=== PATIENT | female | born 1945 | race Caucasian/White ===

== ENCOUNTER 2018-04-01 13:35 | Emergency (ER) | payer MEDICARE, BC, OTHER, SELFPAY ==
--- NOTE | 2018-04-01 13:44 | ED_ITS ---
HPI - Abdominal Pain <TITO Nam - Last Filed: 04/01/18 22:06> General Chief Complaint: Abdominal Pain Stated Complaint: COLON PAIN Time Seen by Provider: 04/01/18 13:36 History of Present Illness HPI narrative: 72-year-old female with history of diverticulitis here for complaint of lower abdominal pain over the past 4 days. She states she has had chills although unknown fever. Last bowel movement was yesterday and was slightly firm. Positive p.o. intake although she did have some nausea over the past couple of days. She has history of diverticulitis with a partial colectomy in August of last year in which they also performed a hysterectomy and oophorectomy. She denies any trauma to the abdomen. Patient also has a history of appendectomy. She denies any stressors of the pain. Although she states laying down and going to sleep does help with the pain. She denies any urinary symptoms. No flank pain. MD complaint: abdominal pain Related Data Home Medications Medication Instructions Recorded Confirmed aspirin 81 mg PO DAILY 04/01/18 04/01/18 omeprazole 20 mg PO QDAYP PRN 04/01/18 04/01/18 Previous Rx's Medication Instructions Recorded ciprofloxacin HCl 500 mg PO BID #14 tab 04/01/18 hydrocodone-acetaminophen [[place]] 1 tab PO Q6H PRN #10 tab 04/01/18 metronidazole 500 mg PO TID #21 tab 04/01/18 ondansetron 8 mg PO Q8HR PRN #10 tab 04/01/18 Allergies Allergy/AdvReac Type Severity Reaction Status Date / Time Penicillins [PENICILLINS] Allergy Unknown RASH Verified 04/01/18 14:18 Review of Systems <TITO Nam - Last Filed: 04/01/18 22:06> Constitutional Denies chills, Denies fever(s), Denies lethargy and Denies weakness Eyes Denies change in vision, Denies eye discharge, Denies irritation and Denies loss of vision ENT Ears, Nose, Mouth, and Throat: Denies change in voice, Denies neck pain and Denies sore throat Cardiovascular Denies chest pain, Denies irregular heart rhythm, Denies lightheadedness, Denies palpitations, Denies dyspnea, Denies dyspnea on exertion and Denies orthopnea Respiratory Denies cough, Denies dyspnea, Denies dyspnea on exertion and Denies wheezing Gastrointestinal Gastrointestinal: Reports abdominal pain Genitourinary Denies hematuria, Denies flank pain, Denies urinary incontinence and Denies urinary urgency Musculoskeletal Denies neck pain Integumentary/Breasts Denies pruritus, Denies erythema, Denies rash and Denies wounds Neurologic Denies confusion, Denies loss of vision and Denies weakness Psychiatric Denies anxiety, Denies confusion, Denies depression, Denies homicidal ideation and Denies suicidal ideation Endocrine Denies palpitations Hematologic/Lymphatic Denies easy bruising Allergic/Immunologic Denies wheezing Exam <TITO Nam - Last Filed: 04/01/18 22:06> Initial Vital Signs Initial Vital Signs: Vital Signs Temperature 99.1 F 04/01/18 13:55 Pulse Rate 89 04/01/18 13:55 Respiratory Rate 16 04/01/18 13:55 Blood Pressure 133/84 H 04/01/18 13:55 Pulse Oximetry 97 04/01/18 13:55 Const General: cooperative and well developed Nutritional Appearance: well nourished Orientation: alert, awake, oriented x3 and not confused HENWV Mouth: oral mucosae normal and moist mucous membranes Chest Chest: normal inspection of the chest Resp Effort & Inspection: normal respiratory effort, able to speak in complete sentences, no respiratory distress and no use of accessory muscles Auscultation: clear to auscultation bilaterally, no rales, no rhonchi and no wheezes Cardio Rate: regular rate Rhythm: regular rhythm Heart Sounds: no click, no gallops, no murmurs and no rubs GI Inspection: non-distended Palpation: soft, no hepatosplenomegaly, No guarding, No pulsatile mass and tender (Tender to bilateral lower quadrant. ) Auscultation: normal bowel sounds Skin General: no rashes or lesions noted, No jaundice and No petechiae Neuro General: alert, oriented x3, gait normal and no focal motor deficits Speech: speech normal <Magy Huerta DO - Last Filed: 04/02/18 07:39> Initial Vital Signs Initial Vital Signs: Vital Signs Temperature 99.1 F 04/01/18 13:55 Pulse Rate 89 04/01/18 13:55 Respiratory Rate 16 04/01/18 13:55 Blood Pressure 133/84 H 04/01/18 13:55 Pulse Oximetry 97 07/07/18 13:55 Course <TITO Nam - Last Filed: 04/01/18 22:06> Orders Ordered: Discontinued Medications Sodium Chloride (Normal Saline 0.9%) 1,000 mls @ 150 mls/hr IV CONT RONN Last Infusion: 04/01/18 16:28 Dose: 150 mls/hr Admin: 04/01/18 14:19 Dose: 150 mls/hr Morphine Sulfate (Morphine) 2 mg IV NOW ONE Stop: 04/01/18 14:32 Last Admin: 04/01/18 14:35 Dose: 2 mg Ondansetron HCl (Zofran) 4 mg IV NOW ONE Stop: 04/01/18 14:32 Last Admin: 04/01/18 14:35 Dose: 4 mg Vital Signs - 8 hr 04/01/18 15:07 04/01/18 16:25 Temperature 98.7 F 97.4 F L Pulse Rate 83 78 Respiratory Rate 18 18 Blood Pressure [Right Arm] 118/65 108/67 Pulse Oximetry 95 97 <Magy Huerta DO - Last Filed: 04/02/18 07:39> Orders Ordered: Discontinued Medications Sodium Chloride (Normal Saline 0.9%) 1,000 mls @ 150 mls/hr IV CONT RONN Last Infusion: 04/01/18 16:28 Dose: 150 mls/hr Admin: 04/01/18 14:19 Dose: 150 mls/hr Morphine Sulfate (Morphine) 2 mg IV NOW ONE Stop: 04/01/18 14:32 Last Admin: 04/01/18 14:35 Dose: 2 mg Ondansetron HCl (Zofran) 4 mg IV NOW ONE Stop: 04/01/18 14:32 Last Admin: 04/01/18 14:35 Dose: 4 mg Vital Signs - 8 hr 04/01/18 15:07 04/01/18 16:25 Temperature 98.7 F 97.4 F L Pulse Rate 83 78 Respiratory Rate 18 18 Blood Pressure [Right Arm] 118/65 108/67 Pulse Oximetry 95 97 MDM - Abdominal Pain <TITO Nam - Last Filed: 04/01/18 22:06> Lab Data Result diagrams: 04/01/18 14:05 04/01/18 14:05 Lab Results 04/01/18 04/01/18 Range/Units 14:05 14:05 WBC 7.9 (4.5-11.0) X10^3/uL RBC 4.74 (4.0-5.2) X10^6/uL Hgb 14.7 (12.0-16.0) g/dL Hct 42.3 (36-46) % MCV 89.2 (80-100) fL MCH 30.9 (26-34) PG MCHC 34.7 (30-36) % RDW 13.9 (11.6-14.8) % Plt Count 222 (150-400) X10^3/uL Neut % (Auto) 63.4 (50-75) % Lymph % (Auto) 25.3 (25-40) % [place] % (Auto) 9.7 (3-14) % Eos % (Auto) 0.9 L (2-4) % Baso % (Auto) 0.7 (0-2) % Neut # (Auto) 5000 (4668-4789) /uL Sodium 140 (137-145) mmol/L Potassium 4.2 (3.4-5.1) mmol/L Chloride 102 (98-107) mmol/L Carbon Dioxide 27 (22-32) mmol/L BUN 13 (7-17) mg/dL Creatinine 0.80 (0.52-1.04) mg/dL Estimated GFR > 60.0 (>60) mL/min BUN/Creatinine Ratio 16.3 (6-22) Glucose 96 (80-110) mg/dL Calcium 9.6 (8.4-10.2) mg/dL Total Bilirubin 0.7 (0.2-1.3) mg/dL AST 29 (14-36) IU/L ALT 31 (9-52) IU/L Alkaline Phosphatase 87 (38-126) U/L Total Protein 7.6 (6.3-8.2) g/dL Albumin 4.3 (3.5-5.0) g/dL Globulin 3.3 (1.7-4.1) g/dL Albumin/Globulin Ratio 1.3 (1.0-2.8) Lipase 99 (23-300) U/L Point of care testing: Urine Dip Bedside Urine Glucose Negative Bedside Urine Bilirubin - Negative Bedside Urine Ketone - Negative Urine Specific Secretary 1.010 Bedside Urine Occult Blood - Negative Bedside Urine pH 6.0 Bedside Urine Protein - Negative Bedside Urine Urobilinogen - Negative Bedside Urine Nitrite - Negative Bedside Urine Leukocytes - Negative Esterase Imaging Data CT scan - abdomen: Radiologist's impression: FINDINGS: Image quality: Excellent. ABDOMEN: Lung bases: There is mild dependent atelectasis. Heart size is normal. A small hiatal hernia is present. Solid organs: There is hypoattenuation of the liver consistent with fatty infiltration. Gallbladder appears within normal limits without calcified gallstones. Biliary system is non-dilated. Pancreas enhances normally. Spleen is normal in size and enhancement. No adrenal nodules. Kidneys are normal in size and enhancement, without hydronephrosis. Peritoneum and bowel: Stomach and small bowel loops are normal in caliber and wall thickness. There are 4 duodenal diverticula redemonstrated along the 2nd through 4th portions of the duodenum without associated inflammatory changes. There are postsurgical changes status post partial colectomy in the sigmoid colon with an end to side anastomosis. Colonic diverticulosis is present with associated inflammatory fat stranding and wall thickening consistent with acute diverticulitis within the blind ending segment of the sigmoid colon adjacent to the anastomotic site. There is a small amount of associated free fluid. No diverticular abscess or macroscopic free air. Nodes and vessels: No retroperitoneal or mesenteric adenopathy. Aorta and inferior vena cava are normal in caliber. Miscellaneous: No ventral hernias. PELVIS: Genitourinary: Bladder wall thickness is normal. The uterus is surgically absent. Miscellaneous: No inguinal hernias or adenopathy. Bones: No suspicious bony lesions. No vertebral body compression fractures. IMPRESSION: 1. Diverticulitis of the sigmoid colon involving the blind ending loop adjacent to the patient's end to side anastomosis. No diverticular abscess or macroscopic free air. No associated bowel obstruction. 2. Small hiatal hernia. 3. Hepatic steatosis. Dictated by: Hector Campos M.D. on 04/01/2018 at 15:21 Approved by: Hector Campos M.D. on 04/01/2018 at 15:31 MDM Narrative Medical decision making narrative: CBC Chem panel were obtained were unremarkable. Lipase was also unremarkable. CT of the abdomen was obtained and shows diverticulitis with no abscess or signs of free air to the abdomen to the sigmoid colon. She is placed on ciprofloxacin and Flagyl. Small amount of [place] is prescribed for breakthrough pain. Zofran ODT is also prescribed for nausea. Follow up with primary care provider in the next couple days for re- evaluation. Slowly advance diet as tolerated. For any worsening symptoms return to the emergency room. <Magy Huerta, DO - Last Filed: 04/02/18 07:39> Lab Data Lab Results 04/01/18 04/01/18 Range/Units 14:05 14:05 WBC 7.9 (4.5-11.0) X10^3/uL RBC 4.74 (4.0-5.2) X10^6/uL Hgb 14.7 (12.0-16.0) g/dL Hct 42.3 (36-46) % MCV 89.2 (80-100) fL MCH 30.9 (26-34) PG MCHC 34.7 (30-36) % RDW 13.9 (11.6-14.8) % Plt Count 222 (150-400) X10^3/uL Neut % (Auto) 63.4 (50-75) % Lymph % (Auto) 25.3 (25-40) % [place] % (Auto) 9.7 (3-14) % Eos % (Auto) 0.9 L (2-4) % Baso % (Auto) 0.7 (0-2) % Neut # (Auto) 5000 (6506-4369) /uL Sodium 140 (137-145) mmol/L Potassium 4.2 (3.4-5.1) mmol/L Chloride 102 (98-107) mmol/L Carbon Dioxide 27 (22-32) mmol/L BUN 13 (7-17) mg/dL Creatinine 0.80 (0.52-1.04) mg/dL Estimated GFR > 60.0 (>60) mL/min BUN/Creatinine Ratio 16.3 (6-22) Glucose 96 (80-110) mg/dL Calcium 9.6 (8.4-10.2) mg/dL Total Bilirubin 0.7 (0.2-1.3) mg/dL AST 29 (14-36) IU/L ALT 31 (9-52) IU/L Alkaline Phosphatase 87 (38-126) U/L Total Protein 7.6 (6.3-8.2) g/dL Albumin 4.3 (3.5-5.0) g/dL Globulin 3.3 (1.7-4.1) g/dL Albumin/Globulin Ratio 1.3 (1.0-2.8) Lipase 99 (23-300) U/L Point of care testing: Urine Dip Bedside Urine Glucose Negative Bedside Urine Bilirubin - Negative Bedside Urine Ketone - Negative Urine Specific Secretary 1.010 Bedside Urine Occult Blood - Negative Bedside Urine pH 6.0 Bedside Urine Protein - Negative Bedside Urine Urobilinogen - Negative Bedside Urine Nitrite - Negative Bedside Urine Leukocytes - Negative Esterase Discharge Plan Departure Patient Disposition: Home, Self-Care Clinical Impression: Acute diverticulitis Discharge Date/Time: 04/01/18 16:29 Interventions: ED Discharge Assessment Last Done: 04/01/18 16:29 Instructions: Diverticulitis Activity Restrictions/Additional Instructions: Laboratory results today were unremarkable. CT of the abdomen shows diverticulitis to the sigmoid colon. You were placed on antibiotics ciprofloxacin and Flagyl use as directed. [id number] Tylenol as needed for any discomfort. Small amount of [place] is prescribed for breakthrough pain use as directed no driving while on the [place]. Zofran is prescribed for nausea use as directed. Follow up with her primary care provider in the next couple days for re-evaluation. For any worsening symptoms return to the emergency room. Slowly advance diet as tolerated. Prescriptions: New hydrocodone-acetaminophen [[place]] 5-325 mg tablet 1 tab PO Q6H PRN (Reason: pain) Qty: 10 RF: 0 metronidazole 500 mg tablet 500 mg PO TID Qty: 21 RF: 0 ciprofloxacin HCl 500 mg tablet 500 mg PO BID Qty: 14 RF: 0 ondansetron 4 mg tablet,disintegrating 8 mg PO Q8HR PRN (Reason: nausea and vomiting) Qty: 10 RF: 0 No Action aspirin 81 mg Tablet,Chewable 81 mg PO DAILY RF: 0 omeprazole 20 MG tablet,delayed release (DR/EC) 20 mg PO QDAYP PRN (Reason: reflux) RF: 0 Referrals: Beatriz Kunz MD [Primary Care Provider] - <Magy Huerta DO - Last Filed: 04/02/18 07:39> Cosign ED Attending Cosignature Attestation: I was immediately available in the department for consultation. Documentation has been reviewed. I agree with assessment and plan.
[2018-04-01 13:55] VITALS: BP 133/84; PULSE 89; RESP 16; TEMP 37.3; O2SAT 97; BMI 29.2
--- NOTE | 2018-04-01 13:59 | DI.CT.S_ITS ---
PROCEDURE: CT ABDOMEN PELVIS W CON INDICATIONS: Bilateral lower abdominal pain TECHNIQUE: After the administration of oral and intravenous contrast, 5 mm thick sections acquired from the diaphragms to the symphysis. 5 mm thick coronal and sagittal reformats were performed. For radiation dose reduction, the following was used: automated exposure control, adjustment of mA and/or kV according to patient size. COMPARISON: [facility], CT, ABDOMEN/PELVIS WITH CONTRAST, 05/28/2016, 22:56. FINDINGS: Image quality: Excellent. ABDOMEN: Lung bases: There is mild dependent atelectasis. Heart size is normal. A small hiatal hernia is present. Solid organs: There is hypoattenuation of the liver consistent with fatty infiltration. Gallbladder appears within normal limits without calcified gallstones. Biliary system is non-dilated. Pancreas enhances normally. Spleen is normal in size and enhancement. No adrenal nodules. Kidneys are normal in size and enhancement, without hydronephrosis. Peritoneum and bowel: Stomach and small bowel loops are normal in caliber and wall thickness. There are 4 duodenal diverticula redemonstrated along the 2nd through 4th portions of the duodenum without associated inflammatory changes. There are postsurgical changes status post partial colectomy in the sigmoid colon with an end to side anastomosis. Colonic diverticulosis is present with associated inflammatory fat stranding and wall thickening consistent with acute diverticulitis within the blind ending segment of the sigmoid colon adjacent to the anastomotic site. There is a small amount of associated free fluid. No diverticular abscess or macroscopic free air. Nodes and vessels: No retroperitoneal or mesenteric adenopathy. Aorta and inferior vena cava are normal in caliber. Miscellaneous: No ventral hernias. PELVIS: Genitourinary: Bladder wall thickness is normal. The uterus is surgically absent. Miscellaneous: No inguinal hernias or adenopathy. Bones: No suspicious bony lesions. No vertebral body compression fractures. IMPRESSION: 1. Diverticulitis of the sigmoid colon involving the blind ending loop adjacent to the patient's end to side anastomosis. No diverticular abscess or macroscopic free air. No associated bowel obstruction. 2. Small hiatal hernia. 3. Hepatic steatosis. Dictated by: Hector Campos M.D. on 04/01/2018 at 15:21 Approved by: Hector Campos M.D. on 04/01/2018 at 15:31
[2018-04-01 14:14] LABS: Add Manual Diff / Slide Review NO; Basophils Percent Auto 0.7 % (0-2); Eosinophils Percent Auto 0.9 % (2-4); Hematocrit 42.3 % (36-46); Hemoglobin 14.7 g/dL (12.0-16.0); Lymphocytes Percent Auto 25.3 % (25-40); Mean Corpuscular HGB Conc 34.7 % (30-36); Mean Corpuscular Hemoglobin 30.9 PG (26-34); Mean Corpuscular Volume 89.2 fL (80-100); Monocytes Percent Auto 9.7 % (3-14); Neutrophils Absolute Auto 5000 /uL (3000-5900); Neutrophils Percent Auto 63.4 % (50-75); Platelet Count 222 X10^3/uL (150-400); Red Blood Cell Count 4.74 X10^6/uL (4.0-5.2); Red Cell Distribution Width 13.9 % (11.6-14.8); White Blood Cell Count 7.9 X10^3/uL (4.5-11.0)
[2018-04-01] MEDS: SODIUM CHLORIDE 0.9% 1,000 ML 150 ML IV (14:19)
[2018-04-01 14:26] LABS: Alanine Aminotransferase 31 IU/L (9-52); Albumin 4.3 g/dL (3.5-5.0); Albumin Globulin Ratio 1.3 (1.0-2.8); Alkaline Phosphatase 87 U/L (38-126); Aspartate Aminotransferase 29 IU/L (14-36); BUN Creatinine Ratio 16.3 (6-22); Bilirubin Total 0.7 mg/dL (0.2-1.3); Blood Urea Nitrogen 13 mg/dL (7-17); Calcium 9.6 mg/dL (8.4-10.2); Carbon Dioxide 27 mmol/L (22-32); Chloride 102 mmol/L (98-107); Estimated Glomerular Filt Rate > 60.0 mL/min (>60); Globulin 3.3 g/dL (1.7-4.1); Glucose 96 mg/dL (80-110); HEMOLYSIS 30 (0-50); Lipase 99 U/L (23-300); Potassium 4.2 mmol/L (3.4-5.1); Sodium 140 mmol/L (137-145); Total Protein 7.6 g/dL (6.3-8.2)
[2018-04-01] MEDS: MORPHINE 2 MG/ML INJ IV (14:35)
[2018-04-01] MEDS: ONDANSETRON 4 MG/2 ML INJ IV (14:35)
[2018-04-01 15:07] VITALS: BP 118/65; PULSE 83; RESP 18; TEMP 37.1; O2SAT 95
[2018-04-01 16:25] VITALS: BP 108/67; PULSE 78; RESP 18; TEMP 36.3; O2SAT 97
== END 2018-04-01 16:29 | disposition home or self-care (01) ==
PROVIDERS: Emergency Provider Nurse Practitioner Family; Family Provider Family Medicine; PCP Family Medicine
DX: K57.92 Diverticulitis of intestine, part unspecified, without perforation or abscess without bleeding (principal)
CPT/HCPCS: 36591; 74177; 80053; 81003; 83690; 85025; 96361; 96374; 96375; 99283; 99285; J2270; J2405; Q9967

== ENCOUNTER → 2018-06-05 09:32 | Outpatient (CLI) | payer MEDICARE, BC, OTHER, SELFPAY ==
[2018-06-05 10:17] LABS: Add Manual Diff / Slide Review NO; Basophils Percent Auto 2.8 % (0-2); Hematocrit 44.1 % (36-46); Hemoglobin 15.3 g/dL (12.0-16.0); Lymphocytes Percent Auto 33.4 % (25-40); Mean Corpuscular HGB Conc 34.6 % (30-36); Mean Corpuscular Hemoglobin 30.7 PG (26-34); Mean Corpuscular Volume 88.6 fL (80-100); Monocytes Percent Auto 9.5 % (3-14); Neutrophils Absolute Auto 2800 /uL (3000-5900); Neutrophils Percent Auto 52.3 % (50-75); Platelet Count 230 X10^3/uL (150-400); Red Blood Cell Count 4.97 X10^6/uL (4.0-5.2); Red Cell Distribution Width 14.2 % (11.6-14.8); White Blood Cell Count 5.3 X10^3/uL (4.5-11.0)
[2018-06-05 10:27] LABS: Alanine Aminotransferase 27 IU/L (9-52); Albumin 4.5 g/dL (3.5-5.0); Albumin Globulin Ratio 1.5 (1.0-2.8); Alkaline Phosphatase 62 U/L (38-126); Aspartate Aminotransferase 27 IU/L (14-36); BUN Creatinine Ratio 17.8 (6-22); Bilirubin Total 0.6 mg/dL (0.2-1.3); Blood Urea Nitrogen 16 mg/dL (7-17); Calcium 9.6 mg/dL (8.4-10.2); Carbon Dioxide 32 mmol/L (22-32); Chloride 105 mmol/L (98-107); Estimated Glomerular Filt Rate > 60.0 mL/min (>60); Glucose 106 mg/dL (80-110); HDL Cholesterol 46 mg/dL (40-60); HEMOLYSIS < 15 (0-50); Potassium 4.4 mmol/L (3.4-5.1); Sodium 145 mmol/L (137-145); Total Protein 7.5 g/dL (6.3-8.2); Triglycerides 453 mg/dL (35-150)
[2018-06-05 10:34] LABS: Cholesterol 338 mg/dL (140-199)
== END ==
PROVIDERS: Visit Provider Family Medicine
DX: E78.2 Mixed hyperlipidemia (principal); Z00.00 Encounter for general adult medical examination without abnormal findings; Z78.0 Asymptomatic menopausal state
CPT/HCPCS: 36415; 80053; 80061; 85025

== ENCOUNTER → 2018-06-21 14:24 | Outpatient (CLI) | payer MEDICARE, BC, OTHER, SELFPAY | PROVIDERS: Visit Provider Family Medicine | DX: M85.852 Other specified disorders of bone density and structure, left thigh (principal); Z78.0 Asymptomatic menopausal state; Z82.62 Family history of osteoporosis | CPT/HCPCS: 77080 ==

== ENCOUNTER → 2018-06-26 14:53 | Outpatient (CLI) | payer MEDICARE, BC, OTHER, SELFPAY ==
--- NOTE | 2018-06-26 14:55 | DI.US.S_ITS ---
PROCEDURE: US PERIPH VENOUS LOW EXTREM LT INDICATIONS: R/O DVT TECHNIQUE: Real-time imaging, as well as color and pulse Doppler interrogation, were performed of the lower extremity deep veins from the inguinal ligament to the popliteal fossa. COMPARISON: None. FINDINGS: The deep veins are normally compressible, and free of intraluminal thrombus. Color and pulse Doppler demonstrate normal phasic intraluminal flow. There is normal augmentation response to distal compression maneuver. IMPRESSION: No evidence of left lower extremity deep vein thrombosis. Dictated by: Yfn Mckinnon M.D. on 06/26/2018 at 14:19 Approved by: Yfn Mckinnon M.D. on 06/26/2018 at 14:19
== END ==
PROVIDERS: PCP Family Medicine; Visit Provider Family Medicine
DX: M79.89 Other specified soft tissue disorders (principal); L81.9 Disorder of pigmentation, unspecified; Z86.72 Personal history of thrombophlebitis
CPT/HCPCS: 93971

== ENCOUNTER → 2018-11-13 13:59 | Outpatient (CLI) | payer MEDICARE, BC, OTHER, SELFPAY ==
--- NOTE | 2018-11-13 | DI.MG.S_ITS ---
BILATERAL DIGITAL SCREENING MAMMOGRAM 3D/2D WITH CAD: 11/13/2018 CLINICAL: Routine screening. Comparison is made to exams dated: 07/16/2016 mammogram, 04/17/2014 mammogram, and 09/10/2011 mammogram - [facility]. There are scattered fibroglandular elements in both breasts. Current study was also evaluated with a Computer Aided Detection (CAD) system. No significant masses, calcifications, or other findings are seen in either breast. There has been no significant interval change. IMPRESSION: NEGATIVE There is no mammographic evidence of malignancy. A 1 year screening mammogram is recommended. This exam was interpreted at Station ID: [id number]. NOTE: For mammograms, a report in lay terms will be sent to the patient. Approximately 15% of breast malignancies will not be visualized mammographically. In the management of a palpable breast mass, a negative mammogram must not discourage biopsy of a clinically suspicious lesion. Electronically Signed By: Roque steven/amor:11/13/2018 18:38:48 letter sent: Normal Exam ACR BI-RADS Category 1: Negative 3341F
== END ==
PROVIDERS: PCP Family Medicine; Visit Provider Family Medicine
DX: Z12.31 Encounter for screening mammogram for malignant neoplasm of breast (principal)
CPT/HCPCS: 77063; 77067

== ENCOUNTER → 2018-12-19 15:04 | Outpatient (CLI) | payer MEDICARE, BC, OTHER, SELFPAY ==
--- NOTE | 2018-12-19 15:08 | DI.RAD.S_ITS ---
PROCEDURE: XR CHEST 2V INDICATIONS: chest pain TECHNIQUE: 2 views of the chest were acquired. COMPARISON: None. FINDINGS: Surgical changes and devices: None. Lungs and pleura: Lungs are clear. No pleural effusions or pneumothorax. Mediastinum: Mediastinal contours are normal. Heart size is normal. Bones and chest wall: No suspicious bony abnormalities. Soft tissues appear unremarkable. IMPRESSION: No acute process. Dictated by: Conchita Davis M.D. on 12/19/2018 at 15:47 Approved by: Conchita Davis M.D. on 12/19/2018 at 15:48
[2018-12-19 15:37] LABS: Add Manual Diff / Slide Review NO; Basophils Absolute Auto 100 /uL (0-100); Basophils Percent Auto 0.9 % (0-2); Eosinophils Absolute Auto 100 /uL (0-450); Hematocrit 41.9 % (36-46); Hemoglobin 14.5 g/dL (12.0-16.0); Lymphocytes Absolute Auto 2200 /uL (1100-4500); Lymphocytes Percent Auto 36.3 % (25-40); Mean Corpuscular HGB Conc 34.7 % (30-36); Mean Corpuscular Hemoglobin 31.2 PG (26-34); Mean Corpuscular Volume 89.8 fL (80-100); Monocytes Absolute Auto 500 /uL (0-900); Monocytes Percent Auto 8.4 % (3-14); Neutrophils Absolute Auto 3200 /uL (1500-7000); Neutrophils Percent Auto 53.4 % (50-75); Platelet Count 228 X10^3/uL (150-400); Red Blood Cell Count 4.67 X10^6/uL (4.0-5.2); Red Cell Distribution Width 14.5 % (11.6-14.8)
[2018-12-19 15:52] LABS: Alanine Aminotransferase 28 IU/L (9-52); Albumin 4.3 g/dL (3.5-5.0); Albumin Globulin Ratio 1.5 (1.0-2.8); Alkaline Phosphatase 74 U/L (38-126); Aspartate Aminotransferase 25 IU/L (14-36); Bilirubin Total 0.5 mg/dL (0.2-1.3); Blood Urea Nitrogen 12 mg/dL (7-17); Calcium 8.7 mg/dL (8.4-10.2); Carbon Dioxide 26 mmol/L (22-32); Chloride 105 mmol/L (98-107); Creatine Kinase 63 U/L (30-135); Estimated Glomerular Filt Rate > 60.0 mL/min (>60); Globulin 2.8 g/dL (1.7-4.1); Glucose 137 mg/dL (80-110); HEMOLYSIS 19 (0-50); Potassium 4.5 mmol/L (3.4-5.1); Sodium 140 mmol/L (137-145); Total Protein 7.1 g/dL (6.3-8.2)
[2018-12-19 15:56] LABS: B Type Natriuretic Peptide < 100 (<100)
[2018-12-19 16:01] LABS: Troponin I < 0.012 ng/mL (0.01-0.034)
== END ==
PROVIDERS: PCP Family Medicine; Visit Provider Registered Nurse
DX: R07.9 Chest pain, unspecified (principal); R06.01 Orthopnea
CPT/HCPCS: 36415; 71046; 80053; 82550; 83880; 84484; 85025

== ENCOUNTER → 2019-01-03 14:57 | Outpatient (CLI) | payer MEDICARE, BC, OTHER, SELFPAY ==
--- NOTE | 2019-01-03 14:59 | DI.ECHO.S_ITS ---
[facility] +---------+ : : [address] : : : : [id number] : : : : Phone: [phone] Echocardiogram Report + + :Name: CARMEL LÓPEZ Study Date: 01/03/2019 Height: 65 in : :[facility] Exam Location: [facility] Weight: 168 lb : : Gender: Female BSA: 1.8 m2 : :: 1945 Age: 73 yrs BP: 110/80 mmHg: :Reason For Study: Chest pain at rest : : Performed By: Kianna Page : :Referring: GIOVANNA RAMÍREZ : + + Interpretation Summary The ejection fraction is estimated to be 60-65%. There is trace aortic regurgitation. There is trace mitral regurgitation. There is a trace or physiologic amount of tricuspid regurgitation. Procedure: A two-dimensional transthoracic echocardiogram with color flow and Doppler was performed. The study quality was technically adequate. There is no prior echocardiogram noted for this patient. The patient was in normal sinus rhythm during the exam. Left Ventricle: The left ventricle is normal in size. There is normal left ventricular wall thickness. The ejection fraction is estimated to be 60-65%. There are no obvious focal wall motion abnormalities noted but poor endocardial definition reduces the sensitivity for the detection of such. Diastolic parameters suggest probable normal left ventricular diastolic function and normal filling pressures. Right Ventricle: The right ventricle is normal in size and function. Atria: Both atria are normal in size. There is no Doppler evidence for an interatrial shunt. Mitral Valve: The mitral valve is normal in structure and function. There is trace mitral regurgitation. Aortic Valve: The aortic valve is grossly normal. The aortic valve opens well. There is trace aortic regurgitation. Tricuspid Valve: The tricuspid valve is normal in structure and function. There is a trace or physiologic amount of tricuspid regurgitation. Pulmonary artery pressures cannot be estimated because of the lack of a measurable TR jet velocity. Pulmonic Valve: The pulmonic valve is not well seen, but is grossly normal. There is trace pulmonic regurgitation. Great Vessels: The aortic root is normal size. The ascending aorta is normal in size. The pulmonary artery is not well visualized, but is probably normal size. The inferior vena cava was not visualized. Pericardium/ Pleura There is no pericardial effusion. There is no pleural effusion. MMode/2D Measurements & Calculations LVIDd: 4.0 cm Ao root diam: 2.7 cm LVIDs: 2.8 cm asc Aorta Diam: 3.0 cm FS: 30.1 % EPSS: 0.32 cm IVSd: 0.84 cm LVPWd: 0.84 cm LV fleming. diameter/BSA (cm/m^2): 2.2 LV sys. diameter/BSA (cm/m^2): 1.5 LA A2 area: 15.1 cm2 RA long axis: 4.1 cm LA A4 area: 15.1 cm2 RA area: 12.1 cm2 LA length (vol): 4.1 cm RA vol: 30.4 ml LA vol: 47.2 ml RA : 16.5 ml/m2 LA vol index: 25.7 ml/m2 RVD1 (basal): 3.0 cm TAPSE: 2.0 cm Doppler Measurements & Calculations Ao V2 max: 111.3 cm/sec LVOT Max Tony: 84.2 cm/sec Ao V2 mean: 76.3 cm/sec LV V1 max P.8 mmHg Ao max P.0 mmHg LV V1 VTI: 15.5 cm Ao mean P.5 mmHg sev ratio: 0.78 Ao V2 VTI: 20.0 cm MV E max tony: 43.7 cm/sec PA V2 max: 50.2 cm/sec MV A max tony: 66.9 cm/sec PA V2 mean: 33.4 cm/sec MV E/A: 0.65 PA mean P.50 mmHg Med Peak E' Tony: 5.2 cm/sec PA Accel Time: 0.03 sec E/E' med: 8.5 Lat Peak E' Tony: 7.4 cm/sec E/E' lat: 5.9 E/e' average: 7.2 MV dec time: 0.19 sec MV P1/2t: 56.2 msec MV P1/2t max tony: 44.2 cm/sec MVA(P1/2t): 3.9 cm2 Reading Physician:07:05 PM
== END ==
PROVIDERS: PCP Family Medicine; Visit Provider Family Medicine
DX: R07.9 Chest pain, unspecified (principal)
CPT/HCPCS: 93306

== ENCOUNTER → 2019-01-04 10:47 | Outpatient (CLI) | payer MEDICARE, BC, OTHER, SELFPAY ==
--- NOTE | 2019-01-19 14:21 | P.HOLT.S_ITS ---
Instructional Systems Specialist Report Referral & Results Date Patient Seen: 01/04/19 Requesting provider: Zuleyka Boss Indication: Chest pain Duration of monitoring (days): 7 Diary information: There were no patient diary entries There were 5 patient triggered events associated with sinus rhythm and PVCs Data: Minimum heart rate identified is 59 beats per minute at 05:27 on 01/08/2019 Maximum sinus heart rate was 145 beats per minute at 11:16 on 01/10/2019 Maximum overall heart rate was 150 beats per minute at 07:57 on 01/07/2019 during a 4 beat run of atrial tachycardia versus supraventricular tachycardia Less than 1% of identified beats rather ventricular supraventricular ectopic in origin There were 8 runs of SVT/atrial tachycardia the longest was 9 beats the fastest was 4 beats at 150 beats per minute Impression: Essentially unremarkable shelter monitor Patient's reported symptoms were not clearly connected to any dysrhythmia. Lots of artifact was present however making it difficult to be absolutely certain, especially around time patient triggered a marker
== END ==
PROVIDERS: PCP Family Medicine; Visit Provider Registered Nurse
DX: R07.9 Chest pain, unspecified (principal)
CPT/HCPCS: 0296T; 0298T

== ENCOUNTER → 2019-02-27 13:40 | Outpatient (CLI) | payer MEDICARE, BC, OTHER, SELFPAY ==
--- NOTE | 2019-02-27 13:42 | DI.RAD.S_ITS ---
PROCEDURE: XR FINGER RT MIN 2V INDICATIONS: fracture of distal right finger in October, having pain TECHNIQUE: AP hand, 2 views of the third finger(s) acquired. COMPARISON: None. FINDINGS: Bones: Prominent diffuse IP and first CMC degenerative changes are present most severe at the third DIP joint. There is an appearance of erosive changes at the third DIP joint. No definitive fracture lucency is identified. Soft tissues: No suspicious soft tissue calcifications. 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 No definitive fracture is identified. Dictated by: Rosenda García M.D. on 02/27/2019 at 15:21 Approved by: Rosenda García M.D. on 02/27/2019 at 15:23
== END ==
PROVIDERS: PCP Family Medicine; Visit Provider Family Medicine
DX: M79.644 Pain in right finger(s) (principal); M19.041 Primary osteoarthritis, right hand; Z87.81 Personal history of (healed) traumatic fracture
CPT/HCPCS: 73140

== ENCOUNTER → 2019-12-06 10:57 | Outpatient (CLI) | payer MEDICARE, BC, OTHER, SELFPAY ==
--- NOTE | 2019-12-06 | DI.MG.S_ITS ---
BILATERAL DIGITAL SCREENING MAMMOGRAM 3D/2D WITH CAD: 12/06/2019 CLINICAL: Routine screening. Comparison is made to exams dated: 11/13/2018 mammogram - [facility], 07/16/2016 mammogram, and 04/17/2014 mammogram - [facility]. There are scattered fibroglandular elements in both breasts. Current study was also evaluated with a Computer Aided Detection (CAD) system. No significant masses, calcifications, or other findings are seen in either breast. There has been no significant interval change. IMPRESSION: NEGATIVE There is no mammographic evidence of malignancy. A 1 year screening mammogram is recommended. This exam was interpreted at Station ID: [id number]. NOTE: For mammograms, a report in lay terms will be sent to the patient. Approximately 15% of breast malignancies will not be visualized mammographically. In the management of a palpable breast mass, a negative mammogram must not discourage biopsy of a clinically suspicious lesion. Electronically Signed By: Kaitlynn gifford/amor:12/06/2019 17:49:52 letter sent: Normal Exam ACR BI-RADS Category 1: Negative 3341F
== END ==
PROVIDERS: PCP Family Medicine; Referring Provider Family Medicine; Visit Provider Family Medicine
DX: Z12.31 Encounter for screening mammogram for malignant neoplasm of breast (principal)
CPT/HCPCS: 77063; 77067

== ENCOUNTER → 2020-02-29 11:21 | Outpatient (CLI) | payer MEDICARE, BC, OTHER, SELFPAY ==
[2020-02-29 12:58] LABS: Alanine Aminotransferase 22 IU/L (<35); Albumin 4.5 g/dL (3.5-5.0); Albumin Globulin Ratio 1.7 (1.0-2.8); Alkaline Phosphatase 86 U/L (38-126); Aspartate Aminotransferase 33 IU/L (14-36); BUN Creatinine Ratio 15.7 (6-22); Bilirubin Total 0.7 mg/dL (0.2-1.3); Blood Urea Nitrogen 13 mg/dL (7-17); Carbon Dioxide 29 mmol/L (22-32); Chloride 103 mmol/L (98-107); Cholesterol 159 mg/dL (140-199); Estimated Glomerular Filt Rate > 60.0 mL/min (>60); Globulin 2.6 g/dL (1.7-4.1); Glucose 105 mg/dL (80-110); HDL Cholesterol 45 mg/dL (40-60); HEMOLYSIS < 15 (0-50); LDL Cholesterol Calculated 64 mg/dL (<100); Potassium 4.4 mmol/L (3.4-5.1); Sodium 140 mmol/L (137-145); Total Protein 7.1 g/dL (6.3-8.2); Triglycerides 248 mg/dL (35-150)
== END ==
PROVIDERS: PCP Family Medicine; Referring Provider Family Medicine; Visit Provider Family Medicine
DX: E78.2 Mixed hyperlipidemia (principal)
CPT/HCPCS: 36415; 80053; 80061

== ENCOUNTER → 2020-03-13 15:34 | Outpatient (CLI) | payer MEDICARE, BC, OTHER, SELFPAY ==
[2020-03-13 18:16] LABS: TSH w/ Reflex to FT4 3.32 uIU/mL (0.47-4.68)
== END ==
PROVIDERS: PCP Family Medicine; Referring Provider Family Medicine; Visit Provider Family Medicine
DX: R00.2 Palpitations (principal)
CPT/HCPCS: 36415; 83735; 84443

== ENCOUNTER → 2020-03-21 11:12 | Outpatient (CLI) | payer MEDICARE, BC, OTHER, SELFPAY ==
[2020-03-24 08:40] LABS: COVID19 Sendout Not Detected (Not Detect)
== END ==
PROVIDERS: Family Provider Family Medicine; PCP Family Medicine; Visit Provider Physician Assistant
DX: Z01.812 Encounter for preprocedural laboratory examination (principal)
CPT/HCPCS: 87635

== ENCOUNTER → 2020-03-24 08:42 | Outpatient (CLI) | payer MEDICARE, BC, OTHER, SELFPAY ==
--- NOTE | 2020-03-24 08:43 | DI.NM.S_ITS ---
PROCEDURE: NM ANGELA PERF SPECT REST & STR Rest and exercise myocardial perfusion SPECT with gated imaging and ejection fraction RADIOPHARMACEUTICAL: 13 mCi Tc-99m sestamibi IV at rest and 25.5 mCi Tc-99m sestamibi IV at peak exercise. A pmrday-protocol was performed. INDICATIONS: EKG changes, palpitations TECHNIQUE: Radiopharmaceutical was injected at peak stress test, and also at rest. SPECT images were obtained. SPECT myocardial perfusion images were displayed in short axis, horizontal long axis, and vertical long axis views. Gated images were reviewed using Ymagis software. COMPARISON: None. CARDIAC STRESS: A standard Jim treadmill exercise tolerance test was performed by the patient under the supervision of an attending staff. The patient exercised for 2 minutes and 52 seconds; functional aerobic impairment (ALMAZ) is +30%. Hemodynamic data: There is normal blood pressure and heart rate response to exercise stress. Patient achieved 114% of maximum predicted heart rate at peak exercise. Symptoms: Patient denied chest pain during exercise. EKG: No diagnostic EKG changes of ischemia; no ectopy. FINDINGS: Raw data: There is good myocardial labeling by radiotracer. No significant motion artifacts. Kyeo-qa-jiqzh ratio is 0.34 (normal is less than 0.38 for sestamibi tracer, and less than 0.50 for thallium tracer). Left ventricle function: Gated images demonstrate normal left ventricle wall thickening. No segmental wall motion abnormality. No transient ischemic dilation; TID is 0.69 (normal less than 1.3). The left ventricle resting end-diastolic volume is 66 mL. Left ventricle stress ejection fraction is 93%; normal values are above 45%. Myocardial perfusion: There is normal distribution of activity in the left and right ventricular myocardium. No fixed or reversible perfusion defects. IMPRESSION: Low risk, normal treadmill nuclear stress test. 1) No perfusion evidence of ischemia or infarction. 2) Normal left ventricular size, wall motion, and systolic function (EF post stress 93%). 3) No ECG evidence of ischemia. 4) No angina during the study. 5) Reduced exercise tolerance (4.6 METs, ALMAZ +30% on sedentary scale). Target heart rate achieved. Appropriate BP response to exercise. 6) No prior nuclear stress test available for comparison. Dictated by: Nic Clark MD on 03/25/2020 at 12:56 Approved by: Nic Clark MD on 03/25/2020 at 12:59
--- NOTE | 2020-03-24 15:14 | P.PCN_ITS ---
Cardiac Stress Test Report Referral & Results Date Patient Seen: 03/24/20 Requesting provider: Megan Gallagher Indication: Palpitations Rest ECG: Unremarkable Procedure Note: Today following both written and verbal informed consent the patient was exercised according to a standard Jim protocol patient went for a total of 2 minutes 52 seconds achieving a maximum heart rate of 169 maximum systolic blood pressure of 178. This is approximately 4.6 METS. Exercise was terminated at this point because of increasing dyspnea and fatigue on the part of the patient. Patient was also given Cardiolite through a previously started Hep-Lock IV by the diagnostic imaging staff approximately 1 minute prior to the cessation of exercise. There are no ST-T segment changes identified although a modest amount of baseline artifact was present Function aerobic impairment rated about 30% on the sedentary scale. Patient became much more dyspneic than I would expect the level of exertion Rare PVC seen in recovery only Impression: No evidence of ischemia limited exercise capacity as above. Please see perfusio n imaging report for further detail Please note: Actual ECG tracings can be found in the PACS system.
== END ==
PROVIDERS: Family Provider Family Medicine; PCP Family Medicine; Referring Provider Family Medicine; Visit Provider Family Medicine
DX: R07.9 Chest pain, unspecified (principal); R00.2 Palpitations
CPT/HCPCS: 78452; 93016; 93017; 93018; A9502

== ENCOUNTER → 2020-03-24 10:39 | Outpatient (CLI) | payer MEDICARE, BC, OTHER, SELFPAY ==
--- NOTE | 2020-04-10 09:37 | PM.CARDMON.1 ---
Industrial Spraypainter Report Referral & Results Date Patient Seen: 03/24/20 Requesting provider: Megan Gallagher Indication: Palpitations Duration of monitoring (days): 7 Diary information: There were 4 patient triggered events, all associated with sinus rhythm and PACs (within 45 seconds of triggered event) There were no patient diary entries Data: Minimum heart rate was 51 beats per minute at 05:39 on 03/29/2020 Maximum heart rate was 163 beats per minute at 14:44 on 03/24/2020 Less than 1% of identified beats or either ventricular supraventricular ectopic in origin There 7 runs of SVT/atrial tachycardia with the longest being 15 beats at a rate of 111 beats per minute suggesting probable atrial tachycardia Impression: Essentially normal 7 day teletypesetter monitor. Occasional PACs identified but difficult to correlate these with patient's symptoms, specially the absence of any diary entries as above. Patient clearly had PACs that were not marked with a trigger
== END ==
PROVIDERS: Family Provider Family Medicine; PCP Family Medicine; Referring Provider Family Medicine; Visit Provider Family Medicine
DX: R00.2 Palpitations (principal)
CPT/HCPCS: 0296T; 0298T

== ENCOUNTER → 2021-03-10 13:21 | Outpatient (CLI) | payer MEDICARE, BC, OTHER, SELFPAY ==
--- NOTE | 2021-03-10 13:24 | DI.RAD.S_ITS ---
PROCEDURE: XR SACRUM COCCYX MIN 2V INDICATIONS: pain TECHNIQUE: 3 views of the sacrum and coccyx acquired. COMPARISON: [facility], CR, XR LUMBAR SPINE MIN 4V, 03/10/2021, 13:39. FINDINGS: Bones: No fractures or dislocations. 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 No sacroiliitis is found, no evidence of pelvic trauma is seen. No suspicious bony lesions. Soft tissues: Visualized bowel gas pattern is normal. No suspicious soft tissue densities. IMPRESSION: Moderately severe L5-S1 degenerative changes without subluxation or trauma. No sign of sacroiliitis or trauma involving the pelvis. Dictated by: Francisco Javier Salazar M.D. on 03/10/2021 at 14:11 Approved by: Francisco Javier Salazar M.D. on 03/10/2021 at 14:12
--- NOTE | 2021-03-10 13:24 | DI.RAD.S_ITS ---
PROCEDURE: XR RIBS RT MIN 3V W CXR 1V INDICATIONS: pain TECHNIQUE: 2 views of the right ribs were acquired, along with a single view chest. COMPARISON: None. FINDINGS: Surgical changes and devices: None. Bones and chest wall: No fractures or dislocations. No suspicious bony lesions. Overlying soft tissues appear unremarkable. Lungs and pleura: No pleural effusions or pneumothorax. Lungs appear clear. Mediastinum: Mediastinal contours appear normal. Heart size is normal. IMPRESSION: Large body habitus, quality of visualization of the lower ribs is diminished as a result. No definite fracture found. Depending on the clinical status follow-up by nuclear medicine bone scan may be warranted. Dictated by: Francisco Javier Salazar M.D. on 03/10/2021 at 14:12 Approved by: Francisco Javier Salazar M.D. on 03/10/2021 at 14:14
--- NOTE | 2021-03-10 13:24 | DI.RAD.S_ITS ---
PROCEDURE: XR LUMBAR SPINE MIN 4V INDICATIONS: pain TECHNIQUE: 5 views of the lumbar spine were acquired, including bilateral oblique views. COMPARISON: None. FINDINGS: Bones: 5 nonrib-bearing vertebrae are present. There is slight dextroscoliotic bony alignment. No vertebral body compression fractures. No suspicious bony lesions. Degenerative disc disease is moderate in severity along the lumbosacral spine to the L5-S1 level where it is moderately severe as is facet osteoarthritis which becomes progressively more prominent from L3 through S1. At the L5-S1 level spinal and foraminal stenosis likely is present. Soft tissues: Overlying bowel gas pattern is normal. No suspicious soft tissue calcifications. Oblique images: No pars defects. IMPRESSION: Progressively greater degenerative changes as the L5-S1 level is reached, with likelihood of significant L4-5 and L5-S1 degenerative spinal and foraminal stenosis. No compression fracture found. Dictated by: Francisco Javier Salazar M.D. on 03/10/2021 at 14:10 Approved by: Francisco Javier Salazar M.D. on 03/10/2021 at 14:11
== END ==
PROVIDERS: Family Provider Family Medicine; PCP Family Medicine; Referring Provider Physician Assistant; Visit Provider Physician Assistant
DX: S20.229A Contusion of unspecified back wall of thorax, initial encounter (principal); M47.817 Spondylosis without myelopathy or radiculopathy, lumbosacral region
CPT/HCPCS: 71101; 72110; 72220

== ENCOUNTER → 2021-03-19 15:52 | Outpatient (CLI) | payer MEDICARE, BC, OTHER, SELFPAY ==
--- NOTE | 2021-03-19 15:55 | DI.RAD.S_ITS ---
PROCEDURE: XR CERVICAL SPINE 2V OR 3V INDICATIONS: fall, injury TECHNIQUE: 3 view(s) of the cervical spine were acquired. COMPARISON: None. FINDINGS: Bones: No fractures or dislocations to the T1 level. The lateral masses of C1 appear intact on the odontoid view. No suspicious bony lesions. Midcervical degenerative disc disease and facet osteoarthritis is moderate in severity. There is slight retrolisthesis of C5 in relationship to C4 likely due to ligamentous laxity. Soft tissues: No prevertebral soft tissue swelling. IMPRESSION: No acute disease. Slight retrolisthesis of C5 in relationship to C4 associated with degenerative disc disease and facet osteoarthritis-this is considered likely degenerative in origin rather than trauma. Dictated by: Francisco Javier Salazar M.D. on 03/19/2021 at 17:11 Approved by: Francisco Javier Salazar M.D. on 03/19/2021 at 17:12
--- NOTE | 2021-03-19 15:55 | DI.RAD.S_ITS ---
PROCEDURE: XR THORACIC SPINE 3V INDICATIONS: fall, injury TECHNIQUE: 3 views of the thoracic spine were acquired. COMPARISON: [facility], CR, XR CHEST 2V, 12/19/2018, 15:26. FINDINGS: Bones: Loss of height noted in the anterior column of the T8 vertebral body compatible with compression fracture of indeterminate age. T8 compression fracture results in approximately 20% loss of normal anterior vertebral body height. Moderate degenerative disc changes noted in the midthoracic spine. No suspicious bony lesions. Twelve pairs of ribs are noted, and appear intact where visualized. Soft tissues: No paravertebral stripe thickening. IMPRESSION: 1. T8 compression fracture of indeterminate age which results in approximately 20% loss of normal anterior vertebral body height. No kyphosis or definite retropulsed fragments associated with the T8 compression deformity. 2. No additional acute osseous lesion. If symptoms and/or clinical suspicion for pathology persists, evaluation with MRI should be considered for further assessment. Dictated by: Debbie Masterson MD, PhD on 03/19/2021 at 16:55 Approved by: Debbie Masterson MD, PhD on 03/19/2021 at 16:57
--- NOTE | 2021-03-19 15:55 | DI.RAD.S_ITS ---
PROCEDURE: XR SACRUM COCCYX MIN 2V INDICATIONS: fall, injury TECHNIQUE: 3 views of the sacrum and coccyx acquired. COMPARISON: [facility], CR, XR SACRUM COCCYX MIN 2V, 03/10/2021, 13:45. FINDINGS: Bones: No fractures or dislocations. No suspicious bony lesions. Soft tissues: Visualized bowel gas pattern is normal. No suspicious soft tissue densities. IMPRESSION: No acute fracture. No osseous lesion. If symptoms and/or clinical suspicion for pathology persist, further assessment with repeat, or advanced imaging (e.g., CT, MRI, or bone scan) may be helpful for further assessment. Dictated by: Conchita Davis M.D. on 03/19/2021 at 16:35 Approved by: Conchita Davis M.D. on 03/19/2021 at 16:36
== END ==
PROVIDERS: Family Provider Family Medicine; PCP Family Medicine; Referring Provider Family Medicine; Visit Provider Family Medicine
DX: S20.229A Contusion of unspecified back wall of thorax, initial encounter (principal); S22.069A Unspecified fracture of T7-T8 vertebra, initial encounter for closed fracture; S30.0XXA Contusion of lower back and pelvis, initial encounter; M47.812 Spondylosis without myelopathy or radiculopathy, cervical region; M50.320 Other cervical disc degeneration, mid-cervical region, unspecified level; W19.XXXA Unspecified fall, initial encounter
CPT/HCPCS: 72040; 72072; 72220

== ENCOUNTER → 2021-03-20 08:57 | Outpatient (CLI) | payer MEDICARE, BC, OTHER, SELFPAY ==
[2021-03-20 10:24] LABS: Alanine Aminotransferase 18 IU/L (<35); Albumin 3.8 g/dL (3.5-5.0); Albumin Globulin Ratio 1.7 (1.0-2.8); Alkaline Phosphatase 97 U/L (38-126); Aspartate Aminotransferase 24 IU/L (14-36); BUN Creatinine Ratio 16.9 (6-22); Bilirubin Total 0.4 mg/dL (0.2-1.3); Blood Urea Nitrogen 13 mg/dL (7-17); Calcium 8.9 mg/dL (8.4-10.2); Carbon Dioxide 28 mmol/L (22-32); Chloride 106 mmol/L (98-107); Cholesterol 162 mg/dL (140-199); Estimated Glomerular Filt Rate > 60.0 mL/min (>60); Globulin 2.3 g/dL (1.7-4.1); Glucose 107 mg/dL (80-110); HDL Cholesterol 45 mg/dL (40-60); HEMOLYSIS < 15 (0-50); LDL Cholesterol Calculated 65 mg/dL (<100); Potassium 4.6 mmol/L (3.4-5.1); Sodium 139 mmol/L (137-145); Total Protein 6.1 g/dL (6.3-8.2); Triglycerides 259 mg/dL (35-150)
== END ==
PROVIDERS: Family Provider Family Medicine; PCP Family Medicine; Referring Provider Family Medicine; Visit Provider Family Medicine
DX: E78.2 Mixed hyperlipidemia (principal)
CPT/HCPCS: 36415; 80053; 80061

== ENCOUNTER → 2021-04-09 12:41 | Outpatient (CLI) | payer MEDICARE, BC, OTHER, SELFPAY | PROVIDERS: Family Provider Family Medicine; PCP Family Medicine; Referring Provider Family Medicine; Visit Provider Family Medicine | DX: M85.852 Other specified disorders of bone density and structure, left thigh (principal); Z78.0 Asymptomatic menopausal state; K92.9 Disease of digestive system, unspecified; Z82.62 Family history of osteoporosis | CPT/HCPCS: 77080 ==

== ENCOUNTER → 2021-05-21 11:23 | Outpatient (CLI) | payer MEDICARE, BC, OTHER, SELFPAY ==
--- NOTE | 2021-05-21 11:24 | DI.MG.S_ITS ---
BILATERAL DIGITAL SCREENING MAMMOGRAM 3D/2D WITH CAD: 05/21/2021 CLINICAL: Routine screening. Comparison is made to exams dated: 12/06/2019 mammogram, 11/13/2018 mammogram - [facility], and 07/16/2016 mammogram - [facility]. There are scattered fibroglandular elements in both breasts. Current study was also evaluated with a Computer Aided Detection (CAD) system. No significant masses, calcifications, or other findings are seen in either breast. There has been no significant interval change. IMPRESSION: NEGATIVE There is no mammographic evidence of malignancy. A 1 year screening mammogram is recommended. This exam was interpreted at Station ID: [id number]. NOTE: For mammograms, a report in lay terms will be sent to the patient. Approximately 15% of breast malignancies will not be visualized mammographically. In the management of a palpable breast mass, a negative mammogram must not discourage biopsy of a clinically suspicious lesion. Electronically Signed By: Roque steven/amor:05/21/2021 14:49:22 letter sent: Normal Exam ACR BI-RADS Category 1: Negative [id number]
== END ==
PROVIDERS: Family Provider Family Medicine; PCP Family Medicine; Referring Provider Family Medicine; Visit Provider Family Medicine
DX: Z12.31 Encounter for screening mammogram for malignant neoplasm of breast (principal)
CPT/HCPCS: 77063; 77067

== ENCOUNTER → 2021-11-12 12:35 | Outpatient (CLI) | payer MEDICARE, BC, SELFPAY ==
--- NOTE | 2021-11-12 12:37 | DI.RAD.S_ITS ---
PROCEDURE: FL BARIUM SWALLOW W AIR COMPARISON: None. INDICATIONS: dysphagia FINDINGS: Function: There is normal esophageal peristalsis. No elicited gastroesophageal reflux. There is normal transit of a barium calibrated tablet through the esophagus into the stomach. Morphology: Air-contrast images demonstrate normal mucosal morphology. Single contrast images demonstrate a moderate-sized diverticulum involving the posterior right margin of the distal pharynx near the pharyngoesophageal junction. No esophageal strictures or extrinsic mass effects. No hiatal hernia. IMPRESSION: Zenker's diverticulum. Dictated by: Debbie Masterson MD, PhD on 11/12/2021 at 15:16 Approved by: Debbie Masterson MD, PhD on 11/12/2021 at 15:25
== END ==
PROVIDERS: Family Provider Family Medicine; PCP Family Medicine; Referring Provider Family Medicine; Visit Provider Family Medicine
DX: K22.5 Diverticulum of esophagus, acquired (principal); R13.10 Dysphagia, unspecified
CPT/HCPCS: 74221

== ENCOUNTER → 2022-02-04 12:07 | Outpatient (CLI) | payer MEDICARE, BC, SELFPAY ==
[2022-02-04 13:29] LABS: BUN Creatinine Ratio 13.3 (6-22); Blood Urea Nitrogen 11 mg/dL (7-17); Estimated Glomerular Filt Rate > 60 mL/min (>60)
--- NOTE | 2022-02-04 13:44 | DI.CT.S_ITS ---
PROCEDURE: CT CHEST W CON INDICATIONS: Evaluate for Zenker's diverticulum TECHNIQUE: After the administration of intravenous contrast, 5 mm thick sections acquired from the pulmonary apices to the posterior costophrenic angles. 1 mm axial lung, 5 mm thick coronal and sagittal reformats and 7 mm axial MIP were acquired. For radiation dose reduction, the following was used: automated exposure control, adjustment of mA and/or kV according to patient size. COMPARISON: [facility], , [place] BARIUM SWALLOW W AIR, 11/12/2021, 14:11. FINDINGS: Image quality: Excellent. Lungs and pleura: No consolidation, pleural effusions or pneumothorax. 8 mm ground-glass nodule in the right lower lobe (3-226). Central and peripheral airways are patent and normal in caliber. Mediastinum: Heart size is normal. No pericardial effusion. No mediastinal or hilar adenopathy by size criteria. Thoracic aorta and central pulmonary arteries are normal in size. Esophagus is normal in caliber. Suspected right, upper esophageal diverticulum (5-27), measuring 1.8 cm. Small hiatal hernia. Bones and chest wall: T8 superior endplate deformity, most consistent with a Schmorl's node. Multifocal degenerative change. No axillary or supraclavicular adenopathy by size criteria. Thyroid gland demonstrates homogeneous attenuation . Abdomen: Visualized upper abdominal solid organs appear normal. Upper abdominal bowel loops are normal in caliber. IMPRESSION: 1. Suspected right, upper esophageal diverticulum, more distinctly seen on the esophagram. 2. Small hiatal hernia. 3. 8 mm ground-glass nodule in the right lower lobe to ensure stability or resolution. Consider CT follow-up in 6-12 months. Dictated by: Tree Israel M.D. on 02/04/2022 at 15:42 Approved by: Tree Israel M.D. on 02/04/2022 at 15:53
== END ==
PROVIDERS: Surgery; Family Provider Family Medicine; PCP Family Medicine; Referring Provider Surgery; Visit Provider Surgery
DX: K22.5 Diverticulum of esophagus, acquired (principal); K44.9 Diaphragmatic hernia without obstruction or gangrene; R91.1 Solitary pulmonary nodule
CPT/HCPCS: 36415; 71260; 82565; 84520; Q9967

== ENCOUNTER → 2022-06-02 10:59 | Outpatient (CLI) | payer MEDICARE, BC, SELFPAY ==
--- NOTE | 2022-06-02 | DI.MG.S_ITS ---
BILATERAL DIGITAL SCREENING MAMMOGRAM 3D/2D WITH CAD: 06/02/2022 CLINICAL: Routine screening. Comparison is made to exams dated: 05/21/2021 mammogram, 12/06/2019 mammogram, 11/13/2018 mammogram - [facility], and 07/16/2016 mammogram - [facility]. There are scattered areas of fibroglandular density in both breasts (category b / 25%-50% glandular tissue). Current study was also evaluated with a Computer Aided Detection (CAD) system. No significant masses, calcifications, or other findings are seen in either breast. There has been no significant interval change. IMPRESSION: NEGATIVE There is no mammographic evidence of malignancy. A 1 year screening mammogram is recommended. Based on the Tyrer Cuzick model (a risk assessment model) the patient's lifetime risk is 3.1% and her 10 year risk is 2.8%. According to the ACR, ACS, and NCCN guidelines, an annual breast MRI exam along with mammogram is recommended if the patient's lifetime risk is 20% or greater. This exam was interpreted at Station ID: [id number]. NOTE: For mammograms, a report in lay terms will be sent to the patient. Approximately 15% of breast malignancies will not be visualized mammographically. In the management of a palpable breast mass, a negative mammogram must not discourage biopsy of a clinically suspicious lesion. Electronically Signed By: Momo alaniz/amor:06/02/2022 12:18:31 letter sent: Normal Exam ACR BI-RADS Category 1: Negative 3341F
== END ==
PROVIDERS: Family Provider Family Medicine; PCP Family Medicine; Referring Provider Family Medicine; Visit Provider Family Medicine
DX: Z12.31 Encounter for screening mammogram for malignant neoplasm of breast (principal)
CPT/HCPCS: 77063; 77067

== ENCOUNTER → 2022-06-24 12:03 | Outpatient (CLI) | payer MEDICARE, BC, SELFPAY ==
[2022-06-24 13:07] LABS: COVID19 -Nasal RAPID POSITIVE (Negative)
== END ==
PROVIDERS: Family Provider Family Medicine; PCP Family Medicine; Visit Provider Nurse Practitioner Family
DX: U07.1 COVID-19 (principal)
CPT/HCPCS: 87635

== ENCOUNTER 2022-12-01 14:47 | Emergency (ER) | payer MEDICARE, BC, SELFPAY ==
[2022-12-01] VITALS (10 sets, daily range): BP systolic 114–152; BP diastolic 57–72; PULSE 80–94; RESP 14–26; TEMP 36.9–37.2; O2SAT 92–96; BMI 27.4
--- NOTE | 2022-12-01 15:19 | DI.RAD.S_ITS ---
PROCEDURE: XR CHEST 1V INDICATIONS: chest pain TECHNIQUE: One view of the chest was acquired. COMPARISON: [facility], CR, XR CHEST 2V, 12/19/2018, 15:26. CT, CT CHEST W CON, 02/04/2022, 14:02. FINDINGS: Surgical changes and devices: None. Lungs and pleura: Lungs are clear. No pleural effusions or pneumothorax. Mediastinum: Mediastinal contours appear normal. Heart size is normal. Bones and chest wall: No suspicious bony lesions. Overlying soft tissues appear unremarkable. IMPRESSION: No acute cardiopulmonary disease. Dictated by: Priscilla Maldonado M.D. on 12/01/2022 at 16:56 Approved by: Priscilla Maldonado M.D. on 12/01/2022 at 16:57
[2022-12-01 15:41] LABS: Add Manual Diff / Slide Review NO; Basophils Absolute Auto 0 /uL (0-100); Basophils Percent Auto 0.6 % (0-2); Eosinophils Absolute Auto 100 /uL (0-450); Eosinophils Percent Auto 0.8 % (2-4); Hematocrit 42.5 % (36-46); Hemoglobin 14.3 g/dL (12.0-16.0); Lymphocytes Absolute Auto 2300 /uL (1100-4500); Lymphocytes Percent Auto 34.1 % (25-40); Mean Corpuscular HGB Conc 33.7 % (30-36); Mean Corpuscular Hemoglobin 30.3 PG (26-34); Mean Corpuscular Volume 89.9 fL (80-100); Monocytes Absolute Auto 500 /uL (0-900); Neutrophils Absolute Auto 3800 /uL (1500-7000); Neutrophils Percent Auto 56.5 % (50-75); Platelet Count 233 X10^3/uL (150-400); Red Blood Cell Count 4.73 X10^6/uL (4.0-5.2); Red Cell Distribution Width 14.4 % (11.6-14.8); White Blood Cell Count 6.7 X10^3/uL (4.5-11.0)
[2022-12-01 15:43] LABS: Prothrombin Time 11.4 SECONDS (10.1-12.7)
[2022-12-01 15:45] LABS: PTT Partial Thromboplastin Tim 29 SECONDS (26-36)
[2022-12-01] MEDS: ASPIRIN 81 MG CHEW TAB 324 MG PO (15:46)
[2022-12-01 15:47] LABS: Alanine Aminotransferase 21 IU/L (<35); Albumin 4.4 g/dL (3.5-5.0); Albumin Globulin Ratio 1.6 (1.0-2.8); Alkaline Phosphatase 93 U/L (38-126); Aspartate Aminotransferase 24 IU/L (14-36); BUN Creatinine Ratio 14.3 (6-22); Bilirubin Total 0.6 mg/dL (0.2-1.3); Blood Urea Nitrogen 12 mg/dL (7-17); Calcium 9.1 mg/dL (8.4-10.2); Carbon Dioxide 26 mmol/L (22-32); Chloride 105 mmol/L (98-107); Creatine Kinase 72 U/L (30-135); Estimated Glomerular Filt Rate > 60 mL/min (>60); Globulin 2.7 g/dL (1.7-4.1); Glucose 140 mg/dL (80-110); HEMOLYSIS < 15 (0-50); Lipase 129 U/L (23-300); Magnesium 1.9 mg/dL (1.6-2.3); Potassium 4.2 mmol/L (3.4-5.1); Sodium 140 mmol/L (137-145); Total Protein 7.1 g/dL (6.3-8.2)
[2022-12-01 16:04] LABS: Troponin I < 0.012 ng/mL (0.01-0.034)
--- NOTE | 2022-12-01 17:09 | ED.CHESTPAIN ---
HPI - Chest Pain General Chief Complaint: Chest Pain Stated Complaint: sent by BP is high and chest pains Time Seen by Provider: 12/01/22 17:00 Source: patient Mode of arrival: Wheelchair Limitations: no limitations Related Data Home Medications Medication Instructions Recorded Confirmed aspirin 81 mg chewable tablet 81 mg PO DAILY 04/01/18 06/24/22 Previous Rx's Medication Instructions Recorded docusate sodium 100 mg capsule See Rx Instructions PO DAILY #180 03/26/21 (Dulcolax Stool Softener caps (docusate)) lidocaine 5 % topical patch 1 patch topical DAILY back pain 03/26/21 (Lidoderm) #30 ea atorvastatin 40 mg tablet See Rx Instructions .Route 03/22/22 .COMPLEX #90 tabs omeprazole 20 mg capsule,delayed See Rx Instructions .Route 03/22/22 release .COMPLEX #180 caps benzonatate 100 mg capsule 100 mg PO BID PRN cough #20 caps 06/24/22 Allergies Allergy/AdvReac Type Severity Reaction Status Date / Time Penicillins [PENICILLINS] Allergy Unknown RASH Verified 12/01/22 15:16 Patient History Medical History Chicken pox Colon polyps Hay fever Hyperlipidemia Hypertriglyceridemia Impaired fasting glucose Measles Overweight (BMI 25.0-29.9) Shingles (~2011) Surgical History Anesthesia H/O colectomy H/O: hysterectomy History of tonsillectomy Status post appendectomy Status post hernia repair Status post LASIK surgery Social History marital status: household members: spouse occupational status: other Smoking Status: Never smoker alcohol intake: current substance use type: does not use Smoking Status: Never smoker alcohol intake frequency: holidays/special occasions only Substance Use Type: does not use Exam Initial Vital Signs Initial Vital Signs: Vital Signs Temperature 98.9 F 12/01/22 15:16 Pulse Rate 94 H 12/01/22 15:16 Respiratory Rate 15 12/01/22 15:16 Blood Pressure 152/68 H 12/01/22 15:16 Pulse Oximetry 95 12/01/22 15:16 Oxygen Delivery Method Room Air 12/01/22 15:16 Course Orders Ordered: ED Orders 12/01/22 15:19 XR chest 1V Stat 12/01/22 15:20 Complete Blood Count AUTO DIFF Stat Comprehensive Metabolic Panel Stat Lipase Stat Magnesium Stat PTT Partial Thromboplastin Jeremiah Stat Prothrombin Time INR Stat Troponin & CK Cardiac Panel Stat 12/01/22 15:35 EKG-12 Lead Stat Discontinued Medications Aspirin (Aspirin 81 Mg Chew Tab) 324 mg PO NOW ONE Stop: 12/01/22 15:20 Last Admin: 12/01/22 15:46 Dose: 324 mg Documented By: FRANCISCO Vital Signs Vital signs: Vital Signs - 8 hr 12/01/22 15:16 12/01/22 15:50 12/01/22 15:53 Temperature 98.9 F Pulse Rate 94 H 88 Respiratory Rate 15 21 Blood Pressure 152/68 H 133/68 Pulse Oximetry 95 Oxygen Delivery Method Room Air 12/01/22 15:53 12/01/22 16:00 12/01/22 16:00 Temperature Pulse Rate 93 H 87 Respiratory Rate 20 20 Blood Pressure 117/59 L Pulse Oximetry 94 92 Oxygen Delivery Method 12/01/22 16:30 12/01/22 16:30 Temperature Pulse Rate 82 Respiratory Rate 14 Blood Pressure 115/61 Pulse Oximetry 93 Oxygen Delivery Method MDM - Chest Pain Lab Data 12/01/22 15:20 12/01/22 15:20 Labs: Lab Results 12/01/22 12/01/22 12/01/22 Range/Units 15:20 15:20 15:20 WBC 6.7 (4.5-11.0) X10^3/uL RBC 4.73 (4.0-5.2) X10^6/uL Hgb 14.3 (12.0-16.0) g/dL Hct 42.5 (36-46) % MCV 89.9 (80-100) fL MCH 30.3 (26-34) PG MCHC 33.7 (30-36) % RDW 14.4 (11.6-14.8) % Plt Count 233 (150-400) X10^3/uL Neut % (Auto) 56.5 (50-75) % Lymph % (Auto) 34.1 (25-40) % Ector % (Auto) 8.0 (3-14) % Eos % (Auto) 0.8 L (2-4) % Baso % (Auto) 0.6 (0-2) % Neut # (Auto) 3800 (3272-9129) /uL Lymph # (Auto) 2300 (8586-2740) /uL Ector # (Auto) 500 (0-900) /uL Eos # (Auto) 100 (0-450) /uL Baso # (Auto) 0 (0-100) /uL PT 11.4 (10.1-12.7) SECONDS INR 1.0 (0.9-1.3) APTT 29 (26-36) SECONDS Sodium 140 (137-145) mmol/L Potassium 4.2 (3.4-5.1) mmol/L Chloride 105 (98-107) mmol/L Carbon Dioxide 26 (22-32) mmol/L BUN 12 (7-17) mg/dL Creatinine 0.84 (0.52-1.04) mg/dL Estimated GFR > 60 (>60) mL/min BUN/Creatinine Ratio 14.3 (6-22) Glucose 140 H (80-110) mg/dL Calcium 9.1 (8.4-10.2) mg/dL Magnesium 1.9 (1.6-2.3) mg/dL Total Bilirubin 0.6 (0.2-1.3) mg/dL AST 24 (14-36) IU/L ALT 21 (<35) IU/L Alkaline Phosphatase 93 (38-126) U/L Total Creatine Kinase 72 (30-135) U/L CK-MB (CK-2) TNP CK-MB (CK-2) Rel Index TNP Troponin I < 0.012 (0.01-0.034) ng/mL Total Protein 7.1 (6.3-8.2) g/dL Albumin 4.4 (3.5-5.0) g/dL Globulin 2.7 (1.7-4.1) g/dL Albumin/Globulin Ratio 1.6 (1.0-2.8) Lipase 129 (23-300) U/L Discharge Plan Departure Prescriptions: No Action docusate sodium [Dulcolax Stool Softener (dss)] 100 mg capsule See Rx Instructions PO DAILY Qty: 180 3RF Rx Instructions: take 1-2 caps at bedtime as needed for constipation PO daily; lidocaine [Lidoderm] 5 % adhesive patch,medicated 1 patch topical DAILY Qty: 30 1RF Rx Instructions: leave on most painful area for up to 12 hrs benzonatate 100 mg capsule 100 mg PO BID PRN (Reason: cough) Qty: 20 0RF atorvastatin 40 mg tablet See Rx Instructions .ROUTE .COMPLEX Qty: 90 3RF Dose Instruction: TAKE ONE TABLET BY MOUTH NIGHTLY AT BEDTIME Rx Instructions: TAKE ONE TABLET BY MOUTH NIGHTLY AT BEDTIME omeprazole 20 mg capsule,delayed release(DR/EC) See Rx Instructions .ROUTE .COMPLEX Qty: 180 3RF Dose Instruction: TAKE TWO CAPSULES BY MOUTH DAILY NEEDED for reflux Rx Instructions: TAKE TWO CAPSULES BY MOUTH DAILY NEEDED for reflux aspirin 81 mg Tablet,Chewable 81 mg PO DAILY Referrals: Megan Gallagher DO [Primary Care Provider] -
[2022-12-01 17:57] LABS: Troponin I < 0.012 ng/mL (0.01-0.034)
--- NOTE | 2022-12-01 18:35 | ED_ITS ---
HPI - Chest Pain General Chief Complaint: Chest Pain Stated Complaint: sent by BP is high and chest pains Time Seen by Provider: 12/01/22 17:00 Source: patient Mode of arrival: Wheelchair Limitations: no limitations History of Present Illness HPI narrative: 77-year-old female who is here for evaluation of high blood pressure and chest discomfort. She states she went to the eye doctor to discuss having procedures done to her left eye. While she was there she had her blood pressure taken and it was reported that it was elevated. The report was it was in the 150s systolic. She also reported that she was having chest discomfort. States that the chest discomfort that she is currently having she is had consistently since this morning. No shortness of breath. No prior history of high blood pressure. No lightheadedness. No headache. No shortness of breath. Was told to come to the emergency department for further evaluation. Related Data Home Medications Medication Instructions Recorded Confirmed aspirin 81 mg chewable tablet 81 mg PO DAILY 04/01/18 06/24/22 Previous Rx's Medication Instructions Recorded docusate sodium 100 mg capsule See Rx Instructions PO DAILY #180 03/26/21 (Dulcolax Stool Softener caps (docusate)) lidocaine 5 % topical patch 1 patch topical DAILY back pain 03/26/21 (Lidoderm) #30 ea atorvastatin 40 mg tablet See Rx Instructions .Route 03/22/22 .COMPLEX #90 tabs omeprazole 20 mg capsule,delayed See Rx Instructions .Route 03/22/22 release .COMPLEX #180 caps benzonatate 100 mg capsule 100 mg PO BID PRN cough #20 caps 06/24/22 Allergies Allergy/AdvReac Type Severity Reaction Status Date / Time Penicillins [PENICILLINS] Allergy Unknown RASH Verified 12/01/22 15:16 Review of Systems Constitutional Constitutional: Reports system reviewed and no additional complaints, except as documented Cardiovascular Cardiovascular: Reports system reviewed and no additional complaints, except as documented Respiratory Respiratory: Reports system reviewed and no additional complaints, except as documented Gastrointestinal Gastrointestinal: Reports system reviewed and no additional complaints, except as documented Musculoskeletal Musculoskeletal: Reports system reviewed and no additional complaints, except as documented Integumentary/Breasts Skin/Breast: Reports system reviewed and no additional complaints, except as documented Neurologic Neurologic: Reports system reviewed and no additional complaints, except as documented Hematologic/Lymphatic On Anticoagulants: No Patient History Medical History Chicken pox Colon polyps Hay fever Hyperlipidemia Hypertriglyceridemia Impaired fasting glucose Measles Overweight (BMI 25.0-29.9) Shingles (~2011) Surgical History Anesthesia H/O colectomy H/O: hysterectomy History of tonsillectomy Status post appendectomy Status post hernia repair Status post LASIK surgery Social History marital status: household members: spouse occupational status: other Smoking Status: Never smoker alcohol intake: current substance use type: does not use Smoking Status: Never smoker alcohol intake frequency: 0-2 drinks per day Substance Use Type: does not use Exam Initial Vital Signs Initial Vital Signs: Vital Signs Temperature 98.9 F 12/01/22 15:16 Pulse Rate 94 H 12/01/22 15:16 Respiratory Rate 15 12/01/22 15:16 Blood Pressure 152/68 H 12/01/22 15:16 Pulse Oximetry 95 12/01/22 15:16 Oxygen Delivery Method Room Air 12/01/22 15:16 Const General: cooperative, comfortable and No ill appearing HENMT Head: normal to inspection and normocephalic Resp Auscultation: clear to auscultation bilaterally Cardio Rate: regular rate Rhythm: regular rhythm GI Palpation: soft Skin General: no rashes or lesions noted Neuro General: patient alert, patient awake and moves all extremities Extrem General: normal to inspection Scores HEART Score Heart Score history: Slightly Suspicious Heart Score EKG: Normal Heart Score Age: > or = 65 years old Heart Score risk factors: 1-2 risk factors Heart Score troponin: < or = to normal limit Heart Score Total: 3 Course Orders Ordered: ED Orders 12/01/22 15:35 EKG-12 Lead Stat 12/01/22 17:26 Trop I [Troponin I] Stat Discontinued Medications Aspirin (Aspirin 81 Mg Chew Tab) 324 mg PO NOW ONE Stop: 12/01/22 15:20 Last Admin: 12/01/22 15:46 Dose: 324 mg Documented By: FRANCISCO Vital Signs Vital signs: Vital Signs - 8 hr 12/01/22 16:30 12/01/22 16:30 12/01/22 17:08 Temperature Pulse Rate 82 82 Respiratory Rate 14 26 H Blood Pressure 115/61 Pulse Oximetry 93 95 Oxygen Delivery Method 12/01/22 17:09 12/01/22 17:09 12/01/22 17:30 Temperature Pulse Rate 80 Respiratory Rate 19 Blood Pressure 119/61 114/57 L Pulse Oximetry 96 Oxygen Delivery Method 12/01/22 17:30 12/01/22 17:56 12/01/22 18:48 Temperature 98.5 F Pulse Rate 81 81 80 Respiratory Rate 23 20 16 Blood Pressure 114/57 L 128/72 Pulse Oximetry 94 95 93 Oxygen Delivery Method Room Air Room Air MDM - Chest Pain Lab Data Attestation: I reviewed the patient's lab results. 12/01/22 15:20 12/01/22 15:20 Labs: Lab Results 12/01/22 12/01/22 12/01/22 Range/Units 15:20 15:20 15:20 WBC 6.7 (4.5-11.0) X10^3/uL RBC 4.73 (4.0-5.2) X10^6/uL Hgb 14.3 (12.0-16.0) g/dL Hct 42.5 (36-46) % MCV 89.9 (80-100) fL MCH 30.3 (26-34) PG MCHC 33.7 (30-36) % RDW 14.4 (11.6-14.8) % Plt Count 233 (150-400) X10^3/uL Neut % (Auto) 56.5 (50-75) % Lymph % (Auto) 34.1 (25-40) % Dickson % (Auto) 8.0 (3-14) % Eos % (Auto) 0.8 L (2-4) % Baso % (Auto) 0.6 (0-2) % Neut # (Auto) 3800 (5597-1914) /uL Lymph # (Auto) 2300 (2499-9240) /uL Dickson # (Auto) 500 (0-900) /uL Eos # (Auto) 100 (0-450) /uL Baso # (Auto) 0 (0-100) /uL PT 11.4 (10.1-12.7) SECONDS INR 1.0 (0.9-1.3) APTT 29 (26-36) SECONDS Sodium 140 (137-145) mmol/L Potassium 4.2 (3.4-5.1) mmol/L Chloride 105 (98-107) mmol/L Carbon Dioxide 26 (22-32) mmol/L BUN 12 (7-17) mg/dL Creatinine 0.84 (0.52-1.04) mg/dL Estimated GFR > 60 (>60) mL/min BUN/Creatinine Ratio 14.3 (6-22) Glucose 140 H (80-110) mg/dL Calcium 9.1 (8.4-10.2) mg/dL Magnesium 1.9 (1.6-2.3) mg/dL Total Bilirubin 0.6 (0.2-1.3) mg/dL AST 24 (14-36) IU/L ALT 21 (<35) IU/L Alkaline Phosphatase 93 (38-126) U/L Total Creatine Kinase 72 (30-135) U/L CK-MB (CK-2) TNP CK-MB (CK-2) Rel Index TNP Troponin I < 0.012 (0.01-0.034) ng/mL Total Protein 7.1 (6.3-8.2) g/dL Albumin 4.4 (3.5-5.0) g/dL Globulin 2.7 (1.7-4.1) g/dL Albumin/Globulin Ratio 1.6 (1.0-2.8) Lipase 129 (23-300) U/L /05/18 Range/Units 17:26 WBC (4.5-11.0) X10^3/uL RBC (4.0-5.2) X10^6/uL Hgb (12.0-16.0) g/dL Hct (36-46) % MCV (80-100) fL MCH (26-34) PG MCHC (30-36) % RDW (11.6-14.8) % Plt Count (150-400) X10^3/uL Neut % (Auto) (50-75) % Lymph % (Auto) (25-40) % Dickson % (Auto) (3-14) % Eos % (Auto) (2-4) % Baso % (Auto) (0-2) % Neut # (Auto) (5206-7935) /uL Lymph # (Auto) (9937-0846) /uL Dickson # (Auto) (0-900) /uL Eos # (Auto) (0-450) /uL Baso # (Auto) (0-100) /uL PT (10.1-12.7) SECONDS INR (0.9-1.3) APTT (26-36) SECONDS Sodium (137-145) mmol/L Potassium (3.4-5.1) mmol/L Chloride (98-107) mmol/L Carbon Dioxide (22-32) mmol/L BUN (7-17) mg/dL Creatinine (0.52-1.04) mg/dL Estimated GFR (>60) mL/min BUN/Creatinine Ratio (6-22) Glucose (80-110) mg/dL Calcium (8.4-10.2) mg/dL Magnesium (1.6-2.3) mg/dL Total Bilirubin (0.2-1.3) mg/dL AST (14-36) IU/L ALT (<35) IU/L Alkaline Phosphatase (38-126) U/L Total Creatine Kinase (30-135) U/L CK-MB (CK-2) CK-MB (CK-2) Rel Index Troponin I < 0.012 (0.01-0.034) ng/mL Total Protein (6.3-8.2) g/dL Albumin (3.5-5.0) g/dL Globulin (1.7-4.1) g/dL Albumin/Globulin Ratio (1.0-2.8) Lipase (23-300) U/L Imaging Data Chest x-ray: Radiologist's Impression: PROCEDURE:? XR CHEST 1V ? INDICATIONS:? chest pain ? TECHNIQUE:? One view of the chest was acquired.? ? COMPARISON:? [facility], CR, XR CHEST 2V, 12/19/2018, 15:26.? CT, CT CHEST W CON, 02/04/2022, 14:02. ? FINDINGS:? ? Surgical changes and devices:? None.? ? Lungs and pleura:? Lungs are clear.? No pleural effusions or pneumothorax.? ? Mediastinum:? Mediastinal contours appear normal.? Heart size is normal.? ? Bones and chest wall:? No suspicious bony lesions.? Overlying soft tissues appear unremarkable.? ? IMPRESSION:? No acute cardiopulmonary disease. ECG Data Attestation: I personally reviewed and interpreted this ECG as follows: Interpretation: Sinus rhythm Ventricular rate 93 Normal axis QRS Normal QTC No ST T wave changes MDM Narrative Medical decision making narrative: Patient's blood pressure has improved without specific intervention here in the emergency department. Her troponin is negative. Has a low risk heart score. EKG is unremarkable. Chest x-ray is unremarkable. Patient has no history of high blood pressure. We discussed the importance of her taking her blood pressure at home so that she could talk with her primary doctor about this and decide whether not she needs to start on any medications.. Patient is safe for home discharge. She will contact her primary doctor for follow-up. She was given return precautions. She expressed understanding and agreement. Discharge Plan Departure Patient Disposition: Home Clinical Impression: Hypertension Instructions: High Blood Pressure Activity Restrictions/Additional Instructions: I do recommend that you take your blood pressure at home like we discussed. I also recommend that you contact your primary doctor for follow-up. They also want recommend a 1-2 week vacation to a destination of your choice. Multiple studies show that vacations greatly improve blood pressure and happiness. Prescriptions: No Action docusate sodium [Dulcolax Stool Softener (dss)] 100 mg capsule See Rx Instructions PO DAILY Qty: 180 3RF Rx Instructions: take 1-2 caps at bedtime as needed for constipation PO daily; lidocaine [Lidoderm] 5 % adhesive patch,medicated 1 patch topical DAILY Qty: 30 1RF Rx Instructions: leave on most painful area for up to 12 hrs benzonatate 100 mg capsule 100 mg PO BID PRN (Reason: cough) Qty: 20 0RF atorvastatin 40 mg tablet See Rx Instructions .ROUTE .COMPLEX Qty: 90 3RF Dose Instruction: TAKE ONE TABLET BY MOUTH NIGHTLY AT BEDTIME Rx Instructions: TAKE ONE TABLET BY MOUTH NIGHTLY AT BEDTIME omeprazole 20 mg capsule,delayed release(DR/EC) See Rx Instructions .ROUTE .COMPLEX Qty: 180 3RF Dose Instruction: TAKE TWO CAPSULES BY MOUTH DAILY NEEDED for reflux Rx Instructions: TAKE TWO CAPSULES BY MOUTH DAILY NEEDED for reflux aspirin 81 mg Tablet,Chewable 81 mg PO DAILY Referrals: Megan Gallagher DO [Primary Care Provider] - Stand Alone Forms: Patient Portal/API
== END 2022-12-01 18:49 | disposition home or self-care (01) ==
PROVIDERS: Emergency Medicine; Emergency Provider Emergency Medicine; Family Provider Family Medicine; PCP Family Medicine
DX: I10 Essential (primary) hypertension (principal); R07.9 Chest pain, unspecified
CPT/HCPCS: 71045; 80053; 82550; 83690; 83735; 84484; 85025; 85610; 85730; 93005; 99283; 99284

== ENCOUNTER → 2023-06-09 12:22 | Outpatient (CLI) | payer MEDICARE, BC, SELFPAY ==
--- NOTE | 2023-06-09 | DI.MG.S_ITS ---
BILATERAL DIGITAL SCREENING MAMMOGRAM 3D/2D WITH CAD: 06/09/2023 CLINICAL: Routine screening. Comparison is made to exams dated: 06/02/2022 mammogram, 05/21/2021 mammogram, and 12/06/2019 mammogram - [facility]. There are scattered areas of fibroglandular density in both breasts (category b / 25%-50% glandular tissue). Current study was also evaluated with a Computer Aided Detection (CAD) system. No significant masses, calcifications, or other findings are seen in either breast. There has been no significant interval change. IMPRESSION: NEGATIVE There is no mammographic evidence of malignancy. A 1 year screening mammogram is recommended. Based on the Tyrer Cuzick model (a risk assessment model) the patient's lifetime risk is 2.9% and her 10 year risk is 2.9%. According to the ACR, ACS, and NCCN guidelines, an annual breast MRI exam along with mammogram is recommended if the patient's lifetime risk is 20% or greater. This exam was interpreted at Station ID: [id number]. NOTE: For mammograms, a report in lay terms will be sent to the patient. Approximately 15% of breast malignancies will not be visualized mammographically. In the management of a palpable breast mass, a negative mammogram must not discourage biopsy of a clinically suspicious lesion. Electronically Signed By: Rosita morales/amor:06/09/2023 21:19:55 letter sent: Normal Exam ACR BI-RADS Category 1: Negative [id number]
== END ==
PROVIDERS: Family Provider Family Medicine; PCP Student in an Organized Health Care Education/Training Program; Referring Provider Student in an Organized Health Care Education/Training Program; Visit Provider Student in an Organized Health Care Education/Training Program
DX: Z12.31 Encounter for screening mammogram for malignant neoplasm of breast (principal)
CPT/HCPCS: 77063; 77067

== ENCOUNTER 2023-12-12 14:14 | Emergency (ER) | payer MEDICARE, BC, SELFPAY ==
[2023-12-12 14:18] VITALS: BP 166/82; PULSE 85; RESP 18; TEMP 36.5; O2SAT 96; BMI 28.3
--- NOTE | 2023-12-12 14:41 | DI.US.S_ITS ---
PROCEDURE: US PERIP VENOUS LOW EXTREM LT INDICATIONS: L leg pain TECHNIQUE: Real-time imaging, as well as color and pulse Doppler interrogation, were performed of the lower extremity deep veins from the inguinal ligament to the popliteal fossa, with documentation of the visualized calf veins. COMPARISON: [facility], , [facility]] VENOUS LOW EXTREM LT, 06/26/2018, 15:08. FINDINGS: The common femoral, femoral, popliteal, and the visualized calf veins are normally compressible, and free of intraluminal thrombus. Color and pulse Doppler demonstrate normal phasic intraluminal flow. There is normal augmentation response to distal compression maneuver. Complex focus is in the popliteal fossa measuring 3.5 x 2.0 x 1.4 cm. Fluid is noted along the medial anterior as well as anterior lateral aspect the knee. IMPRESSION: No findings of lower extremity deep venous thrombosis. Complex Rizzo cyst. Knee effusion extending to the lateral and medial joint space. Dictated by: Rosenda García M.D. on 12/12/2023 at 15:23 Approved by: Rosenda García M.D. on 12/12/2023 at 15:25
--- NOTE | 2023-12-12 15:07 | ED_ITS ---
HPI - Extremity Problem <Josephine Abernathy PA-C - Last Filed: 12/13/23 16:28> General Chief complaint: Extremity Problem,Nontraumatic Stated complaint: L leg problems, coldness, possible clot Time Seen by Provider: 12/12/23 14:41 Source: patient Mode of arrival: Ambulatory History of Present Illness HPI Narrative: 78-year-old female with past medical history hyperlipidemia presents to the ED with right left pain for 3-4 weeks. [facility]. Patient is complaining of left-sided calf and thigh pain. Denies numbness, tingling, weakness. No trauma. Patient does say the pain started even before she went to [facility], dates it as going as far back as October 2023. Patient states that she feels very cold in that leg every once in awhile. Denies fever, chills, chest pain, shortness of breath, lightheadedness, dizziness, syncope. Related Data Home Medications Medication Instructions Recorded Confirmed aspirin 81 mg chewable tablet 81 mg PO DAILY 04/01/18 12/14/23 omega 6-oke-azv-fish oil 1,000 mg 1 cap PO BID 12/14/23 12/14/23 (120 mg-180 mg) capsule (Fish Oil) Previous Rx's Medication Instructions Recorded lidocaine 5 % topical patch 1 patch topical DAILY back pain 03/26/21 (Lidoderm) #30 ea docusate sodium 100 mg capsule 100 - 200 mg (1 - 2 x 100 mg) PO 05/31/23 (Stool Softener) ONCE PM PRN for constipation #180 caps omeprazole 20 mg capsule,delayed See Rx Instructions .Route 06/15/23 release .COMPLEX #180 caps atorvastatin 40 mg tablet See Rx Instructions .Route 06/20/23 .COMPLEX #90 tabs Allergies Allergy/AdvReac Type Severity Reaction Status Date / Time Penicillins [PENICILLINS] Allergy Unknown RASH Verified 12/14/23 10:02 Review of Systems <Josephine Abernathy PA-C - Last Filed: 12/13/23 16:28> Constitutional Constitutional: Denies chills, Denies fatigue, Denies fever(s), Denies frequent falls, Denies lethargy and Denies weakness Eyes Eyes: Denies change in vision, Denies eye discharge, Denies irritation and Denies loss of vision ENT Ears, Nose, Mouth, and Throat: Denies change in voice, Denies dizziness, Denies neck pain, Denies sore throat and Denies throat swelling Cardiovascular Cardiovascular: Denies chest pain, Denies irregular heart rhythm, Denies lightheadedness, Denies palpitations, Denies dyspnea, Denies dyspnea on exertion and Denies orthopnea Respiratory Respiratory: Denies cough, Denies dyspnea, Denies dyspnea on exertion and Denies wheezing Gastrointestinal Gastrointestinal: Denies abdominal pain, Denies change in bowel habits, Denies diarrhea, Denies nausea and Denies vomiting Musculoskeletal Musculoskeletal: Denies neck pain and Denies numbness Comments: Left leg pain Integumentary/Breasts Skin/Breast: Denies pruritus, Denies erythema, Denies rash and Denies wounds Neurologic Neurologic: Denies behavioral changes, Denies confusion, Denies dizziness, Denies frequent falls, Denies loss of vision, Denies numbness and Denies weakness Psychiatric Psychiatric: Denies anxiety, Denies behavioral changes, Denies confusion, Denies depression, Denies homicidal ideation and Denies suicidal ideation Endocrine Endocrine: Denies fatigue, Denies flushing and Denies palpitations Hematologic/Lymphatic Hematologic/Lymphatic: Denies easy bruising Allergic/Immunologic Allergic/Immunologic: Denies urticaria, Denies throat swelling and Denies wheezing Patient History <Josephine Abernathy PA-C - Last Filed: 12/13/23 16:28> Medical History Overweight (BMI 25.0-29.9) Impaired fasting glucose Hypertriglyceridemia Hyperlipidemia Hay fever Measles Shingles (~2011) Chicken pox Colon polyps Surgical History Anesthesia H/O colectomy H/O: hysterectomy Status post hernia repair Status post appendectomy History of tonsillectomy Status post LASIK surgery Social History marital status: household members: spouse occupational status: other Smoking Status: Never smoker alcohol intake: current substance use type: does not use Smoking Status: Never smoker alcohol intake frequency: holidays/special occasions only Substance Use Type: does not use Exam <Josephine Abernathy PA-C - Last Filed: 12/13/23 16:28> Narrative Exam Narrative: Const General:?cooperative, healthy appearing and comfortable [facility] Head:?normal to inspection Ears:?hearing grossly normal bilaterally Nose:?external nose normal Face and sinus:?normal facial exam and sinuses nontender Mouth:?oral mucosae normal Throat:?posterior oropharynx normal Eyes General:?appearance normal, both eyes and all related structures Neck Neck:?normal visual inspection and no lymphadenopathy noted Resp Effort & Inspection:?normal respiratory effort Auscultation:?clear to auscultation bilaterally Cardio Rate:?regular rate Rhythm:?regular rhythm Musculoskeletal There is some tenderness to palpation of the left calf. Minimal swelling. There is some mild discoloration of both feet, left greater than right. Varicose veins visualized on exam in left foot and calf area. Strength and sensation is intact. There is full range of motion. Patient is neurovascularly intact. Neuro General:?patient alert, patient awake and patient oriented x3 Initial Vital Signs Initial Vital Signs: Vital Signs Temperature 97.7 F 12/12/23 14:18 Pulse Rate 85 12/12/23 14:18 Respiratory Rate 18 12/12/23 14:18 Blood Pressure 166/82 H 12/12/23 14:18 Pulse Oximetry 96 12/12/23 14:18 Oxygen Delivery Method Room Air 12/12/23 14:18 <Roseann Dobbins DO - Last Filed: 12/16/23 08:49> Initial Vital Signs Initial Vital Signs: Vital Signs Temperature 97.7 F 12/12/23 14:18 Pulse Rate 85 12/12/23 14:18 Respiratory Rate 18 12/12/23 14:18 Blood Pressure 166/82 H 12/12/23 14:18 Pulse Oximetry 96 12/12/23 14:18 Oxygen Delivery Method Room Air 12/12/23 14:18 Course <Josephine Abernathy PA-C - Last Filed: 12/13/23 16:28> Orders Ordered: ED Orders 12/12/23 14:41 US perip venous low extrem lt Stat Vital Signs Vital signs: Vital Signs - 8 hr 12/12/23 14:18 Temperature 97.7 F Pulse Rate 85 Respiratory Rate 18 Blood Pressure 166/82 H Pulse Oximetry 96 Oxygen Delivery Method Room Air <Roseann Dobbins DO - Last Filed: 12/16/23 08:49> Orders Ordered: ED Orders 12/12/23 14:41 US periph venous low extrem lt Stat Vital Signs Vital signs: Vital Signs - 8 hr 12/12/23 14:18 Temperature 97.7 F Pulse Rate 85 Respiratory Rate 18 Blood Pressure 166/82 H Pulse Oximetry 96 Oxygen Delivery Method Room Air MDM - Extremity (Nontraumatic) <Josephine Abernathy PA-C - Last Filed: 12/13/23 16:28> MDM Narrative Medical decision making narrative: 78-year-old female with past medical history hyperlipidemia presents to the ED with right left pain for 3-4 weeks. Concern for DVT versus musculoskeletal sprain/strain versus varicose veins versus venous stasis versus other. Will obtain ultrasound rule out DVT. Will reassess. Ultrasound negative for lower extremity DVT. There is a complex Rizzo cyst. There is a knee effusion extending to the lateral and medial joint spaces. X- ray was obtained to rule out bony injuries. No acute radiographic findings on x-ray. Discussed findings with patient. Recommend ibuprofen/Aleve for pain control. Recommend follow-up with PCP and/or ortho for further evaluation. ED return precautions discussed with patient. Patient verbalized understanding. Medical records reviewed: Yes Discharge Plan Departure Patient Disposition: Home Clinical Impression: Rizzo's cyst of knee Qualifiers: Laterality: left Qualified Code(s): M71.22 - Synovial cyst of popliteal space [Rizzo], left knee Instructions: DI for Rizzo Cyst Activity Restrictions/Additional Instructions: You were evaluated in the ED today for left leg pain. Your x-ray did not show any fractures or dislocations. The ultrasound shows a Rizzo cyst which is the likely source of your symptoms. Treatment for a Rizzo cyst is treatment with anti-inflammatory medications such as Aleve or ibuprofen. You may take 600 mg of ibuprofen every 8 hours with food. Please also follow-up with your PCP and an ortho specialist for further evaluation. Return to the ED if your worsening symptoms, tingling, numbness, weakness. Prescriptions: No Action lidocaine [Lidoderm] 5 % adhesive patch,medicated 1 patch topical DAILY Qty: 30 1RF Rx Instructions: leave on most painful area for up to 12 hrs docusate sodium [Stool Softener] 100 mg capsule 100 - 200 mg PO ONCE PM PRN (Reason: for constipation) Qty: 180 0RF omeprazole 20 mg capsule,delayed release(DR/EC) See Rx Instructions .ROUTE .COMPLEX Qty: 180 3RF Dose Instruction: TAKE TWO CAPSULES BY MOUTH DAILY NEEDED for reflux Rx Instructions: TAKE TWO CAPSULES BY MOUTH DAILY NEEDED for reflux atorvastatin 40 mg tablet See Rx Instructions .ROUTE .COMPLEX Qty: 90 0RF Dose Instruction: TAKE ONE TABLET BY MOUTH NIGHTLY AT BEDTIME Rx Instructions: TAKE ONE TABLET BY MOUTH NIGHTLY AT BEDTIME. Needs appt/labs prior to refills. omega 2-fbg-lmg-fish oil [Fish Oil] 1,000 mg (120 mg-180 mg) capsule 1 cap PO BID aspirin 81 mg Tablet,Chewable 81 mg PO DAILY Referrals: Olga Medina MD [Primary Care Provider] - Stand Alone Forms: Patient Portal/API ED Sign-out <Roseann Dobbins DO - Last Filed: 12/16/23 08:49> Cosign ED Attending Cosignature Attestation: I was immediately available in the department for consultation.
--- NOTE | 2023-12-12 15:48 | DI.RAD.S_ITS ---
PROCEDURE: XR KNEE LT 3V INDICATIONS: Leg pain TECHNIQUE: 3 views of the knee were acquired. COMPARISON: None. FINDINGS: Bones: No fractures or dislocations. No suspicious bony lesions. There is mild femorotibial compartment narrowing and small intercondylar osteophytes. There are small patellofemoral osteophyte Soft tissues: No joint effusion. No suspicious soft tissue calcifications. IMPRESSION: No acute radiographic findings. Mild degenerative change. Dictated by: Elisa Cabrera M.D. on 12/12/2023 at 16:44 Approved by: Elisa Cabrera M.D. on 12/12/2023 at 16:44
[2023-12-12 17:54] VITALS: BP 141/66; PULSE 70; RESP 16; TEMP 36.7; O2SAT 97
== END 2023-12-12 18:02 | disposition home or self-care (01) ==
PROVIDERS: Emergency Provider Student in an Organized Health Care Education/Training Program; Family Provider Family Medicine; PCP Student in an Organized Health Care Education/Training Program
DX: M71.22 Synovial cyst of popliteal space [Baker], left knee (principal)
CPT/HCPCS: 73562; 93971; 99283; 99284

== ENCOUNTER → 2024-02-28 15:06 | Outpatient (CLI) | payer MEDICARE, BC, OTHER, SELFPAY ==
[2024-02-28 17:20] LABS: Hemoglobin A1C% w Est Avg Glu 6.6 % (4.0-6.0)
== END ==
PROVIDERS: Family Provider Family Medicine; PCP Student in an Organized Health Care Education/Training Program; Referring Provider Nurse Practitioner Family; Visit Provider Nurse Practitioner Family
DX: Z13.1 Encounter for screening for diabetes mellitus (principal)
CPT/HCPCS: 36415; 83036

== ENCOUNTER → 2024-03-06 11:10 | Outpatient (CLI) | payer MEDICARE, BC, OTHER, SELFPAY ==
--- NOTE | 2024-03-06 11:11 | DI.RAD.S_ITS ---
PROCEDURE: FL BARIUM SWALLOW INDICATIONS: Diverticulum COMPARISON: [facility], , BARIUM SWALLOW WITH SPEECH, 05/03/2014, 11:45. FINDINGS: Function: There is weakened esophageal peristalsis, without tertiary contractions. Moderate elicited gastroesophageal reflux. Morphology: Mild irregularity of the extrathoracic esophagus. No residual esophageal diverticulum is identified. Small hiatal hernia. IMPRESSION: Mild irregularity of the extrathoracic esophagus, possibly related to prior surgery. Consider direct visualization. Moderate esophageal dysmotility. Small hiatal hernia with moderate reflux. Dictated by: Osmany Duncan M.D. on 03/06/2024 at 14:04 Approved by: Osmany Duncan M.D. on 03/06/2024 at 14:05
== END ==
LOC: RAD 11:10
PROVIDERS: Family Provider Family Medicine; PCP Student in an Organized Health Care Education/Training Program; Referring Provider Student in an Organized Health Care Education/Training Program; Visit Provider Student in an Organized Health Care Education/Training Program
DX: K22.5 Diverticulum of esophagus, acquired (principal); K22.4 Dyskinesia of esophagus; K44.9 Diaphragmatic hernia without obstruction or gangrene; K21.9 Gastro-esophageal reflux disease without esophagitis
CPT/HCPCS: 74220

== ENCOUNTER → 2024-06-13 10:59 | Outpatient (CLI) | payer MEDICARE, BC, SELFPAY ==
--- NOTE | 2024-06-13 11:01 | DI.MG.S_ITS ---
BILATERAL DIGITAL SCREENING MAMMOGRAM 3D/2D WITH CAD: 06/13/2024 CLINICAL: Routine screening. Comparison is made to exams dated: 06/09/2023 mammogram, 06/02/2022 mammogram, and 05/21/2021 mammogram - [facility]. There are scattered areas of fibroglandular density (category b / 25%-50% glandular tissue). Current study was also evaluated with a Computer Aided Detection (CAD) system. No significant masses, calcifications, or other findings are seen in either breast. There has been no significant interval change. IMPRESSION: NEGATIVE There is no mammographic evidence of malignancy. A 1 year screening mammogram is recommended. Based on the Tyrer Cuzick model (a risk assessment model) the patient's lifetime risk is 2.6% and her 10 year risk is 0.0%. According to the ACR, ACS, and NCCN guidelines, an annual breast MRI exam along with mammogram is recommended if the patient's lifetime risk is 20% or greater. This exam was interpreted at Station ID: [id number]. NOTE: For mammograms, a report in lay terms will be sent to the patient. Approximately 15% of breast malignancies will not be visualized mammographically. In the management of a palpable breast mass, a negative mammogram must not discourage biopsy of a clinically suspicious lesion. Electronically Signed By: Kaitlynn gifford/amor:06/13/2024 14:31:27 letter sent: Normal Exam ACR BI-RADS Category 1: Negative 3341F
== END ==
LOC: MAMMO 11:01
PROVIDERS: Family Provider Family Medicine; PCP Student in an Organized Health Care Education/Training Program; Referring Provider Student in an Organized Health Care Education/Training Program; Visit Provider Student in an Organized Health Care Education/Training Program
DX: Z12.31 Encounter for screening mammogram for malignant neoplasm of breast (principal)
CPT/HCPCS: 77063; 77067

== ENCOUNTER → 2024-07-26 11:00 | Outpatient (CLI) | payer MEDICARE, BC, SELFPAY ==
[2024-07-26 13:14] LABS: Cholesterol 114 mg/dL (140-199); HDL Cholesterol 50 mg/dL (40-60); LDL Cholesterol Calculated 37 mg/dL (<100); Triglycerides 135 mg/dL (35-150)
[2024-07-26 14:50] LABS: Creatinine Urine Random 91.92 mg/dL
[2024-07-26 14:55] LABS: Microalbumin Urine Random < 0.6 mg/dL (0-1.6)
== END ==
PROVIDERS: Family Provider Family Medicine; PCP Student in an Organized Health Care Education/Training Program; Referring Provider Student in an Organized Health Care Education/Training Program; Visit Provider Student in an Organized Health Care Education/Training Program
DX: E11.9 Type 2 diabetes mellitus without complications (principal); I10 Essential (primary) hypertension
CPT/HCPCS: 36415; 80061; 82043; 82570; 83036

== ENCOUNTER → 2025-01-16 14:51 | Outpatient (CLI) | payer MEDICARE, BC, SELFPAY ==
[2025-01-16 16:22] LABS: Hemoglobin A1C% w Est Avg Glu 5.6 % (4.0-6.0)
== END ==
PROVIDERS: Family Provider Family Medicine; PCP Student in an Organized Health Care Education/Training Program; Referring Provider Student in an Organized Health Care Education/Training Program; Visit Provider Student in an Organized Health Care Education/Training Program
DX: E11.9 Type 2 diabetes mellitus without complications (principal)
CPT/HCPCS: 36415; 83036

== ENCOUNTER → 2025-03-20 14:02 | Outpatient (CLI) | payer MEDICARE, BC, SELFPAY | PROVIDERS: PCP Student in an Organized Health Care Education/Training Program; Referring Provider Family Medicine; Visit Provider Family Medicine | DX: I49.9 Cardiac arrhythmia, unspecified (principal); R00.2 Palpitations | CPT/HCPCS: 93246 ==

== ENCOUNTER → 2025-06-28 11:03 | Outpatient (CLI) | payer MEDICARE, BC, SELFPAY ==
--- NOTE | 2025-06-28 11:05 | DI.MG.S_ITS ---
MM screening mammo BI: 06/28/2025. BI-RADS: 1 CLINICAL: 79-year old female for bilateral screening mammogram. Tyrer-Cuzick lifetime risk of 3.0%. No personal or first-degree family history of breast cancer. PRIOR EXAMS 06/13/2024, 06/09/2023, 06/02/2022, 05/21/2021. MAMMOGRAPHY TECHNIQUE: 2D and 3D (tomosynthesis) digital mammographic views obtained, with additional images as needed for full coverage. Current study was also evaluated with a Computer Aided Detection (CAD) system. DENSITY C. The breasts are heterogeneously dense, which may obscure small masses. MAMMOGRAPHY FINDINGS Bilateral: No suspicious mass, asymmetry, microcalcification, or other abnormality seen. IMPRESSION: * No evidence of malignancy. RECOMMENDATIONS Bilateral * Annual screening mammography. OVERALL ASSESSMENT CATEGORY BI-RADS-1: Negative. The [employer] recommends annual screening mammography beginning at age 40 for women with average risk of breast cancer. ELECTRONICALLY SIGNED: Amara Cyr M.D. on 06/28/2025 at 10:06:13 PM PT Interpreting Station ID: [id number]
== END ==
LOC: MAMMO 11:04
PROVIDERS: PCP Student in an Organized Health Care Education/Training Program; Referring Provider Student in an Organized Health Care Education/Training Program; Visit Provider Student in an Organized Health Care Education/Training Program
DX: Z12.31 Encounter for screening mammogram for malignant neoplasm of breast (principal); R92.333 Mammographic heterogeneous density, bilateral breasts
CPT/HCPCS: 77063; 77067